=== PATIENT | female | born 1945 | race American Indian/Alaskan Native ===

== ENCOUNTER 2017-01-20 22:14 | Emergency (ER) | payer MEDICARE, OTHER ==
[2017-01-20 22:46] VITALS: BP 158/79
[2017-01-21] MEDS ORDERED: Levofloxacin 500 MG Tab PO ONE (00:54)
--- NOTE | 2017-01-21 01:01 | EDM.PDOC ---
ED HPI GENERAL MEDICAL PROBLEM - General Chief Complaint: ENT Problem Stated Complaint: BLOODY NOSE, WONT STOP Time Seen by Provider: 01/21/17 00:45 Source of Information: Reports: Patient History Limitations: Reports: No Limitations - History of Present Illness INITIAL COMMENTS - FREE TEXT/NARRATIVE: This 71 yo female patient reports to the ED due to a bloody nose. The patient reports her nose started bleeding this evening, but has not quit. The patient reports she has been having a cough and runny nose for the past week. The patient finished Augmentin on Thursday for bronchitis, but continues to have symptoms. Onset: Today Duration: Constant Location: Reports: Face, Chest Quality: Reports: Ache, Dull Severity: Moderate Improves with: Reports: None Worsens with: Reports: None Associated Symptoms: Reports: No Other Symptoms - Related Data Allergies Allergy/AdvReac Type Severity Reaction Status Date / Time milk Allergy Diarrhea Verified 01/20/17 22:46 morphine Allergy Stomach Verified 01/20/17 22:46 Upset aspirin AdvReac Stomach Verified 01/20/17 22:46 Upset codeine AdvReac Stomach Verified 01/20/17 22:46 Upset Home Meds: Home Meds Gabapentin [Neurontin] 100 mg PO BID 02/21/14 [History] Simvastatin [Zocor] 20 mg PO BEDTIME 02/21/14 [History] Albuterol [Proventil HFA] 6.7 gm INH ASDIRECTED PRN 08/07/14 [History] Cetirizine HCl [All Day Allergy] 10 mg PO DAILY 08/07/14 [History] Famotidine 20 mg PO DAILY 08/07/14 [History] Ferrous Gluconate 325 mg PO BID 08/07/14 [History] Levothyroxine [Synthroid] 50 mcg PO ACBREAKFAST 01/20/17 [History] Past Medical History - Past Health History Medical/Surgical History: Denies Medical/Surgical History HEENT History: Reports: Epistaxis Musculoskeletal History: Reports: Other (See Below) Other Musculoskeletal History: crushed vertebrae Oncologic (Cancer) History: Reports: Lung Other Oncologic History: Lung cancer in 2006 - Infectious Disease History Infectious Disease History: Reports: Chicken Pox, Measles Social & Family History - Tobacco Use Smoking Status *Q: Current Every Day Smoker Years of Tobacco use: 55 Packs/Tins Daily: 10 Used Tobacco, but Quit: No Second Hand Smoke Exposure: Yes - Caffeine Use Caffeine Use: Reports: Coffee, Tea - Alcohol Use Days Per Week of Alcohol Use: 0 - Recreational Drug Use Recreational Drug Use: No Drug Use in Last 12 Months: No - Living Situation & Occupation Living situation: Reports: Occupation: Retired ED ROS ENT - Review of Systems Review Of Systems: ROS reveals no pertinent complaints other than HPI. ED EXAM, ENT - Physical Exam Exam: See Below Exam Limited By: No Limitations General Appearance: Alert, WD/WN, Moderate Distress Eye Exam: Bilateral Eye: EOMI, Normal Inspection, PERRL Ears: Normal External Exam, Normal Canal, Hearing Grossly Normal, Normal TMs Nose: Normal Inspection, Normal Mucousa, Dried Blood (right nare) Mouth/Throat: Normal Inspection, Normal Gums, Normal Lips, Normal Oropharynx, Normal Teeth Head: Atraumatic, Normocephalic Neck: Normal Inspection, Supple, Non-Tender, Full Range of Motion Respiratory/Chest: No Respiratory Distress, No Accessory Muscle Use, Chest Non- Tender, Rhonchi (left lower lobe) Cardiovascular: Normal Peripheral Pulses, Regular Rate, Rhythm, No Edema, No Gallop, No JVD, No Murmur, No Rub GI/Abdominal: Normal Bowel Sounds, Soft, Non-Tender, No Organomegaly, No Distention, No Abnormal Bruit, No Mass (Female) Exam: Deferred Rectal (Female) Exam: Deferred Back: Normal Inspection, Full Range of Motion Extremities: Normal Inspection, Normal Range of Motion, Non-Tender, No Pedal Edema, Normal Capillary Refill Neurological: Alert, Oriented, CN II-XII Intact, Normal Cognition, Normal Gait, Normal Reflexes, No Motor/Sensory Deficits Psychiatric: Normal Affect, Normal Mood Skin: Warm, Dry, Intact, Normal Color, No Rash Lymphatic: No Adenopathy Course - Vital Signs Last Recorded V/S: Last Vital Signs Temp 36.7 C 01/20/17 22:32 Pulse 100 01/20/17 22:32 Resp 18 01/20/17 22:32 BP 158/79 H 01/20/17 22:32 Pulse Ox 100 01/20/17 22:32 - Orders/Labs/Meds Meds: Medications Discontinued Medications Generic Name Dose Route Start Last Admin Trade Name Freq PRN Reason Stop Dose Admin Levofloxacin 500 mg 01/21/17 00:54 01/21/17 01:01 Levaquin PO 01/21/17 00:55 500 mg ONETIME ONE Administration Departure - Departure Time of Disposition: 01:00 Disposition: Home, Self-Care 01 Condition: Fair Clinical Impression: Bronchitis, Nosebleed - Discharge Information Instructions: Acute Bronchitis, [id number], Nosebleed, [id number] Forms: ED Department Discharge Care Plan Goals: The patient was advised of the examination results during the visit. The patient was given an oral dose of Levaquin (500 mg) while in the emergency department. The patient was discharged with a script for Levaquin (500 mg) #5 to take 1 by mouth daily for the next 5 days. The patient was encouraged to place a small amount of triple antibiotic or Aquaphor on a cotton swab and apply to her nostril before bed and in the morning to keep the moisture in her nares. If the patient has any additional symptoms or concerns, the patient should follow-up with her primary care facility or return to the emergency department.
== END 2017-01-21 01:06 | disposition home or self-care (01) ==
LOC: DL.ED 22:14
DX: J40 Bronchitis, not specified as acute or chronic (principal); R04.0 Epistaxis; F17.210 Nicotine dependence, cigarettes, uncomplicated; Z88.5 Allergy status to narcotic agent; Z91.011 Allergy to milk products; Z88.8 Allergy status to other drugs, medicaments and biological substances; Z79.899 Other long term (current) drug therapy; E78.00 Pure hypercholesterolemia, unspecified; E03.9 Hypothyroidism, unspecified; Z88.6 Allergy status to analgesic agent
CPT/HCPCS: 30901; 99283; 99284; A9270

== ENCOUNTER 2017-01-21 09:53 | Emergency (ER) | payer MEDICARE, OTHER ==
[2017-01-21 10:10] VITALS: BP 139/70
[2017-01-21] MEDS ORDERED: Silver Nitrate Applicator Each TOP ONE (10:32)
--- NOTE | 2017-01-21 11:00 | EDM.PDOC ---
ED HPI GENERAL MEDICAL PROBLEM - General Chief Complaint: ENT Problem Stated Complaint: BLOODY NOSE [phone] Time Seen by Provider: 01/21/17 10:15 Source of Information: Reports: Patient, RN, RN Notes Reviewed History Limitations: Reports: No Limitations - History of Present Illness INITIAL COMMENTS - FREE TEXT/NARRATIVE: Patient presents to the ER with c/o nose bleed. She states she was seen in the ER last evening. She states the nose began to bleed again this morning, but she was able to get it stopped at home. She states she has company coming and would like to have the nose bleed taken care of. Pt admits to allergies and recent sinus congestion. Denies fever or chills, sob, chest pain, nausea, vomiting, diarrhea. Onset: Today Onset Date: 01/20/17 - Related Data Allergies Allergy/AdvReac Type Severity Reaction Status Date / Time milk Allergy Diarrhea Verified 01/20/17 22:46 morphine Allergy Stomach Verified 01/20/17 22:46 Upset aspirin AdvReac Stomach Verified 01/20/17 22:46 Upset codeine AdvReac Stomach Verified 01/20/17 22:46 Upset Home Meds: Home Meds Gabapentin [Neurontin] 100 mg PO BID 02/21/14 [History] Simvastatin [Zocor] 20 mg PO BEDTIME 02/21/14 [History] Albuterol [Proventil HFA] 6.7 gm INH ASDIRECTED PRN 08/07/14 [History] Cetirizine HCl [All Day Allergy] 10 mg PO DAILY 08/07/14 [History] Famotidine 20 mg PO DAILY 08/07/14 [History] Ferrous Gluconate 325 mg PO BID 08/07/14 [History] Levothyroxine [Synthroid] 50 mcg PO ACBREAKFAST 01/20/17 [History] Past Medical History - Past Health History Medical/Surgical History: Denies Medical/Surgical History HEENT History: Reports: Epistaxis Cardiovascular History: Reports: High Cholesterol Musculoskeletal History: Reports: Other (See Below) Other Musculoskeletal History: crushed vertebrae Endocrine/Metabolic History: Reports: Hypothyroidism Oncologic (Cancer) History: Reports: Lung Other Oncologic History: Lung cancer in 2006 - Infectious Disease History Infectious Disease History: Reports: Chicken Pox, Measles Social & Family History - Tobacco Use Smoking Status *Q: Current Every Day Smoker Years of Tobacco use: 55 Packs/Tins Daily: 10 Used Tobacco, but Quit: No Second Hand Smoke Exposure: Yes - Caffeine Use Caffeine Use: Reports: Coffee, Tea - Alcohol Use Days Per Week of Alcohol Use: 0 - Recreational Drug Use Recreational Drug Use: No Drug Use in Last 12 Months: No - Living Situation & Occupation Living situation: Reports: Occupation: Retired ED ROS ENT - Review of Systems Review Of Systems: ROS reveals no pertinent complaints other than HPI. ED EXAM, ENT - Physical Exam Exam: See Below Exam Limited By: No Limitations General Appearance: Alert, WD/WN, No Apparent Distress Eye Exam: Bilateral Eye: Normal Inspection, PERRL Ears: Normal External Exam, Normal Canal, Hearing Grossly Normal, TM Fluid ( bilat) Nose: Normal Inspection, Injected Turbinates (bilat) Mouth/Throat: Normal Inspection, Normal Gums, Normal Lips, Normal Oropharynx Head: Atraumatic, Normocephalic Neck: Normal Inspection, Supple, Non-Tender, Full Range of Motion Respiratory/Chest: No Respiratory Distress, Lungs Clear, Normal Breath Sounds, No Accessory Muscle Use, Chest Non-Tender Cardiovascular: Normal Peripheral Pulses, Regular Rate, Rhythm, No Edema, No Gallop, No JVD, No Murmur, No Rub GI/Abdominal: Normal Bowel Sounds, Soft, Non-Tender (Female) Exam: Deferred Rectal (Female) Exam: Deferred Back: Normal Inspection, Full Range of Motion Extremities: Normal Inspection, Normal Range of Motion, Non-Tender, No Pedal Edema, Normal Capillary Refill Neurological: Alert, Oriented, Normal Cognition, Normal Gait, No Motor/Sensory Deficits Psychiatric: Normal Affect, Normal Mood Skin: Warm, Dry, Intact, Normal Color, No Rash Lymphatic: No Adenopathy ED ENT PROCEDURES - Epistaxis Procedure Indication: Epistaxis, Controlled Recent anticoagulants/antiplatlets: No Uncontrolled HTN: No Recent septal/nasal surgery: No Site of bleeding: Right Nare Ice pack to area: No Chemical cautery: Silver Nitrate Topical Complications: No Course - Vital Signs Last Recorded V/S: Last Vital Signs Temp 98 F 01/21/17 09:56 Pulse 100 01/21/17 09:56 Resp 18 01/21/17 09:56 BP 139/70 01/21/17 09:56 Pulse Ox 97 01/21/17 09:56 - Orders/Labs/Meds Meds: Medications Discontinued Medications Generic Name Dose Route Start Last Admin Trade Name Tiffanie PRN Reason Stop Dose Admin Silver Nitrate 1 each 01/21/17 10:32 01/21/17 10:39 Silver Nitrate TOP 01/21/17 10:33 1 each ONETIME ONE Administration Departure - Departure Time of Disposition: 10:56 Disposition: Home, Self-Care 01 Condition: Good Clinical Impression: Epistaxis not due to trauma - Discharge Information Instructions: Nosebleed, [id number] Referrals: Palma Pandya NP [Primary Care Provider] - Forms: ED Department Discharge Additional Instructions: IF NOSEBLEED RECURS: Afrin 2-3 sprays to the affected nostril and pinch/firm pressure to the nose for 15-20 minutes. Follow up with your primary care facility as needed. Use over the counter bacitracin/zinc ointment. Apply to the nostril with a qtip 3 times daily to keep mucosa moist. Use humidifier at home.
== END 2017-01-21 11:19 | disposition home or self-care (01) ==
LOC: DL.ED 09:53
DX: R04.0 Epistaxis (principal); E78.00 Pure hypercholesterolemia, unspecified; E03.9 Hypothyroidism, unspecified; Z88.5 Allergy status to narcotic agent; Z91.011 Allergy to milk products; Z88.6 Allergy status to analgesic agent; Z79.899 Other long term (current) drug therapy
CPT/HCPCS: 30901; 99283

== ENCOUNTER 2018-09-27 12:59 | Emergency (ER) | payer MEDICARE, OTHER ==
--- NOTE | 2018-09-27 15:08 | EDM.PDOC ---
ED HPI GENERAL MEDICAL PROBLEM - General Chief Complaint: General Stated Complaint: FACIAL SWELING FROM SURGERY Time Seen by Provider: 09/27/18 14:45 Source of Information: Reports: Patient History Limitations: Reports: No Limitations - History of Present Illness INITIAL COMMENTS - FREE TEXT/NARRATIVE: This 72 yo female patient reports to the ED with left sided facial swelling post aneurism clamping (Done by Dr. Salcedo with [facility] in [place] on August 31, 2018) . The patient and her report increased swelling in the left side of her face over the past 3 days. The patient reports she has had numbness in the left side of her face and scalp since the surgery. The patient reports she has not had any other problems or noticed drainage. The patient reports she has not noticed any fevers or redness throughout the area. The patient reports the swelling seems to be increased in the morning and the area seems to be more firm than later in the day. Duration: Day(s):, Constant, Getting Worse Location: Reports: Head Quality: Reports: Dull Severity: Moderate Improves with: Reports: None Worsens with: Reports: None Context: Reports: Other Associated Symptoms: Reports: No Other Symptoms - Related Data Allergies Allergy/AdvReac Type Severity Reaction Status Date / Time milk Allergy Diarrhea Verified 09/27/18 13:53 morphine Allergy Stomach Verified 09/27/18 13:53 Upset aspirin AdvReac Stomach Verified 09/27/18 13:53 Upset codeine AdvReac Stomach Verified 09/27/18 13:53 Upset Home Meds: Home Meds Gabapentin [Neurontin] 100 mg PO BID 02/21/14 [History] Simvastatin [Zocor] 20 mg PO BEDTIME 02/21/14 [History] Albuterol [Proventil HFA] 6.7 gm INH ASDIRECTED PRN 08/07/14 [History] Cetirizine HCl [All Day Allergy] 10 mg PO DAILY 08/07/14 [History] Famotidine 20 mg PO DAILY 08/07/14 [History] Ferrous Gluconate 325 mg PO BID 08/07/14 [History] Levothyroxine [Synthroid] 50 mcg PO ACBREAKFAST 01/20/17 [History] Past Medical History - Past Health History Medical/Surgical History: Denies Medical/Surgical History HEENT History: Reports: Epistaxis Cardiovascular History: Reports: High Cholesterol Gastrointestinal History: Reports: GERD Musculoskeletal History: Reports: Other (See Below) Other Musculoskeletal History: crushed vertebrae Neurological History: Reports: Seizure Endocrine/Metabolic History: Reports: Hypothyroidism Oncologic (Cancer) History: Reports: Lung Other Oncologic History: Lung cancer in 2006 - Infectious Disease History Infectious Disease History: Reports: Chicken Pox, Measles - Past Surgical History HEENT Surgical History: Reports: Cataract Surgery Respiratory Surgical History: Reports: Lung Resection Female Surgical History: Reports: Hysterectomy Social & Family History - Family History Family Medical History: Noncontributory - Caffeine Use Caffeine Use: Reports: Coffee, Tea - Living Situation & Occupation Living situation: Reports: Occupation: Retired ED ROS GENERAL - Review of Systems Review Of Systems: ROS reveals no pertinent complaints other than HPI. ED EXAM, GENERAL - Physical Exam Exam: See Below Exam Limited By: No Limitations General Appearance: Alert, WD/WN, Mild Distress Eye Exam: Bilateral Eye: EOMI, Normal Inspection, PERRL Ears: Normal External Exam, Normal Canal, Hearing Grossly Normal, Normal TMs Nose: Normal Inspection, Normal Mucosa, No Blood Throat/Mouth: Normal Inspection, Normal Lips, Normal Teeth, Normal Gums, Normal Oropharynx, Normal Voice, No Airway Compromise Head: Atraumatic, Facial Swelling (left sided facial swelling) Neck: Normal Inspection, Supple, Non-Tender, Full Range of Motion Respiratory/Chest: No Respiratory Distress, Lungs Clear, Normal Breath Sounds, No Accessory Muscle Use, Chest Non-Tender Cardiovascular: Normal Peripheral Pulses, Regular Rate, Rhythm, No Edema, No Gallop, No JVD, No Murmur, No Rub GI/Abdominal: Normal Bowel Sounds, Soft, Non-Tender, No Organomegaly, No Distention, No Abnormal Bruit, No Mass (Female) Exam: Deferred Rectal (Female) Exam: Deferred Back Exam: Normal Inspection, Full Range of Motion, NT Extremities: Normal Inspection, Normal Range of Motion, Non-Tender, Normal Capillary Refill, No Pedal Edema Neurological: Alert, Oriented, CN II-XII Intact, Normal Cognition, Normal Gait, Normal Reflexes, No Motor/Sensory Deficits Psychiatric: Normal Affect, Normal Mood Skin Exam: Warm, Dry, Intact, Normal Color, No Rash Lymphatic: No Adenopathy Course - Vital Signs Last Recorded V/S: Last Vital Signs Temp 36.9 C 09/27/18 15:02 Pulse Resp BP Pulse Ox - Orders/Labs/Meds Orders: Active Orders 24 hr Category Date Time Status Brain w wo Cont [MR] Urgent Exams 09/27/18 15:27 Ordered Labs: Laboratory Tests 09/27/18 09/27/18 09/27/18 Range/Units 14:56 14:56 14:56 WBC 4.9 L (5.0-10.0) 10^3/uL RBC 4.14 L (4.2-5.4) 10^6/uL Hgb 10.1 L (12.0-16.0) g/dL Hct 33.3 L (37.0-47.0) % MCV 80.4 D (80-100) fL MCH 24.4 L (27.0-34.0) pg MCHC 30.3 L (33.0-35.0) g/dL Plt Count 330 D (150-450) 10^3/uL Neut % (Auto) 53.4 (42.2-75.2) % Lymph % (Auto) 34.9 (20.5-50.1) % Foard % (Auto) 8.0 (2-8) % Eos % (Auto) 3.3 H (1.0-3.0) % Baso % (Auto) 0.4 (0.0-1.0) % Sodium 141 (135-145) mmol/L Potassium 3.6 (3.6-5.0) mmol/L Chloride 108 (101-111) mmol/L Carbon Dioxide 23.0 (21.0-31.0) mmol/L Anion Gap 13.6 BUN 13 (7-18) mg/dL Creatinine 0.6 (0.6-1.3) mg/dL Est Cr Clr Drug Dosing 59.09 mL/min Estimated GFR (MDRD) > 60 BUN/Creatinine Ratio 21.66 Glucose 86 (74-105) mg/dL Calcium 8.7 (8.4-10.2) mg/dl Total Bilirubin 0.4 (0.2-1.0) mg/dL AST 15 (10-42) IU/L ALT 9 L (10-60) IU/L Alkaline Phosphatase 94 (42-121) IU/L C-Reactive Protein < 0.5 (0.0-1.3) mg/dL Total Protein 7.4 (6.7-8.2) g/dl Albumin 3.9 (3.2-5.5) g/dl Globulin 3.5 Albumin/Globulin Ratio 1.11 Meds: Medications Discontinued Medications Generic Name Dose Route Start Last Admin Trade Name Tiffanie PRN Reason Stop Dose Admin Gadobenate Dimeglumine 15 ml 09/27/18 15:27 09/27/18 15:45 Multihance IVPUSH 09/27/18 15:28 15 ml ONETIME ONE Administration - Re-Assessments/Exams Free Text/Narrative Re-Assessment/Exam: 09/27/18 15:12 A consult call was placed to Dr. Salcedo ([facility]). Dr. Salcedo would like labs ordered (CBC, CMP, CRP) and possible imaging (MRI with and without contrast if possible or CT with and without contrast if no MR). Dr. Salcedo would like to see the patient tomorrow for a clinic visit which will be coordinated through his nursing staff. Dr. Salcedo would like a call if we find anything abnormal or concerning on lab or imaging). 09/27/18 17:41 Received a return call from Dr. Wright (Nerurology). Dr. Wright agreed that the patient should be seen, but does not need to come to [facility]. The patient should follow-up with Dr. Salcedo's office tomorrow for continued evaluation and management. Departure - Departure Time of Disposition: 17:44 Disposition: Home, Self-Care 01 Condition: Fair Clinical Impression: Swelling of left side of face - Discharge Information *PRESCRIPTION DRUG MONITORING PROGRAM REVIEWED*: Not Applicable *COPY OF PRESCRIPTION DRUG MONITORING REPORT IN PATIENT YEN: Not Applicable Forms: ED Department Discharge Care Plan Goals: The patient was advised of the examination, lab and MRI results during the visit. Consult calls were made to Dr. Salcedo and Dr. Wright. The patient should call Dr. Salcedo's office in the morning to be seen in the clinic tomorrow. The patient was encouraged to avoid eating after midnight tonight. If the patient has any additional symptoms or concerns, the patient should either return to the emergency department or visit her primary care facility. - My Orders Last 24 Hours: My Active Orders 09/27/18 15:27 Brain w wo Cont [MR] Urgent - Assessment/Plan Last 24 Hours: My Active Orders 09/27/18 15:27 Brain w wo Cont [MR] Urgent
[2018-09-27 15:21] LABS: ANION GAP 13.6; CHLORIDE,CL 108 mmol/L (101-111); SODIUM,NA 141 mmol/L (135-145)
[2018-09-27] MEDS ORDERED: Gadobenate Dimeglumine 529 MG/ML 15 ML SDV IVPUSH ONE (15:27)
== END 2018-09-27 17:52 | disposition home or self-care (01) ==
LOC: DL.ED 12:59
DX: T81.89XA Other complications of procedures, not elsewhere classified, initial encounter (principal); R22.0 Localized swelling, mass and lump, head; E03.9 Hypothyroidism, unspecified; Z88.6 Allergy status to analgesic agent; Z88.5 Allergy status to narcotic agent; Z79.899 Other long term (current) drug therapy; Z98.49 Cataract extraction status, unspecified eye; Z90.710 Acquired absence of both cervix and uterus; Z91.011 Allergy to milk products
CPT/HCPCS: 36415; 70553; 80053; 85025; 86140; 99284; A9577; 99283

== ENCOUNTER 2019-03-07 11:01 | Inpatient (IN) | payer MEDICARE, OTHER ==
[2019-03-07] MEDS ORDERED: Ondansetron 4 MG Tab.DIS PO PRN (11:10)
[2019-03-07] MEDS ORDERED: Carboxymethylcellulose Sodium 1% Ophth Gel 0.4 ML UD EYEBOTH PRN (11:10)
[2019-03-07] MEDS ORDERED: Albuterol 6.7 GM Inhaler INH PRN (11:10)
--- NOTE | 2019-03-07 11:23 | PCM.HP ---
H&P History of Present Illness - General Date of Service: 03/07/19 Admit Problem/Dx: Admission Diagnosis/Problem Admission Diagnosis/Problem Confusion Source of Information: Patient - History of Present Illness Initial Comments - Free Text/Narative: Patient was admitted with acute cerebrovascular accident. Continues to require physical and occupational therapy. She is being admitted to swing bed for continuation of physical and occupational therapy Details below - Related Data Allergies/Adverse Reactions: Allergies Allergy/AdvReac Type Severity Reaction Status Date / Time aspirin AdvReac Stomach Verified 03/03/19 14:18 Upset codeine AdvReac Stomach Verified 03/03/19 14:18 Upset milk AdvReac Diarrhea Verified 03/03/19 14:45 morphine AdvReac Stomach Verified 03/03/19 14:45 Upset Home Medications: Home Meds Simvastatin [Zocor] 20 mg PO BEDTIME 02/21/14 [History] Albuterol [Proventil HFA] 2 puff INH Q4HR PRN 08/07/14 [History] Levothyroxine [Synthroid] 25 mcg PO ACBREAKFAST 01/20/17 [History] Calcium Citrate/Vitamin D3 [Calcium Citrate - Vit D Caplet] 2 tab PO DAILY 03/03 [History] Carboxymethylcellulose Sodium [Refresh Tears 0.5%] 1 - 2 drop EYEBOTH QID [History] Carvedilol [Coreg] 25 mg PO BID 03/03/19 [History] Cetirizine [ZyrTEC] 10 mg PO DAILY 03/03/19 [History] Cholecalciferol (Vitamin D3) [Vitamin D3] 1,000 unit PO DAILY 03/03/19 [History] Lisinopril 2.5 mg PO DAILY 03/03/19 [History] Magnesium Oxide 400 mg PO BID 03/03/19 [History] Omeprazole 20 mg PO DAILY 03/03/19 [History] dexAMETHasone [Dexamethasone] 8 mg PO DAILY 03/03/19 [History] Loratadine/Pseudoephedrine [Allergy Relief D 12-Hour Tab] 1 tab PO Q12HR PRN [History] Fluticasone Propionate [Flonase] [address] DAILY 03/07/19 [History] Past Medical History - Past Health History Medical/Surgical History: Denies Medical/Surgical History HEENT History: Reports: Epistaxis Cardiovascular History: Reports: High Cholesterol Respiratory History: Reports: SOB Gastrointestinal History: Reports: GERD Other Gastrointestinal History: lactose intolerance Genitourinary History: Reports: None IT [employer]CH[employer] History: Reports: None Musculoskeletal History: Reports: Other (See Below) Other Musculoskeletal History: crushed vertebrae Neurological History: Reports: Seizure Other Neuro History: Denies seizure 03/03/2019 Psychiatric History: Reports: None Endocrine/Metabolic History: Reports: Hypothyroidism Hematologic History: Reports: None Immunologic History: Reports: None Oncologic (Cancer) History: Reports: Lung Other Oncologic History: Lung cancer in 2006 Dermatologic History: Reports: None - Infectious Disease History Infectious Disease History: Reports: Chicken Pox, Measles - Past Surgical History HEENT Surgical History: Reports: Cataract Surgery Respiratory Surgical History: Reports: Lung Resection Female Surgical History: Reports: Hysterectomy Social & Family History - Family History Family Medical History: Noncontributory - Caffeine Use Caffeine Use: Reports: Coffee - Living Situation & Occupation Living situation: Reports: Occupation: Retired H&P Review of Systems - Review of Systems: Review Of Systems: See Below Pulmonary: Reports: No Symptoms Cardiovascular: Reports: No Symptoms Gastrointestinal: Reports: No Symptoms Musculoskeletal: Reports: No Symptoms Neurological: Reports: Weakness Exam - Exam Exam: See Below - Exam General: Alert, Oriented, Cooperative Neck: Supple, Trachea Midline, 2 Lungs: Clear to Auscultation, Normal Respiratory Effort Cardiovascular: Regular Rate, Regular Rhythm Extremities: Normal Inspection, Normal Range of Motion, Non-Tender, No Pedal Edema, Normal Capillary Refill Neuro Extensive - Motor, Sensory, Reflexes: Other (Mild weakness of the right extremities.) Problem List Initiated/Reviewed/Updated: Yes Orders Last 24hrs: Active Orders 24 hr Category Date Time Status Patient Status [ADT] Routine ADT 03/07/19 11:12 Active Communication Order [RC] ROUTINE Care 03/07/19 11:10 Active Oxygen Therapy [RC] PRN Care 03/07/19 11:10 Active RT Post Treatment Assessment [RC] Click to Edit Care 03/07/19 11:10 Active RT Pre-Treatment Assessment [RC] Click to Edit Care 03/07/19 11:10 Active Up ad Paulette [RC] ASDIRECTED Care 03/07/19 11:10 Active OT Evaluation and Treatment [CONS] Routine Cons 03/07/19 11:10 Active PT Evaluation and Treatment [CONS] Routine Cons 03/07/19 11:10 Active Regular Diet [DIET] Diet 03/07/19 Lunch Active Albuterol [Proventil HFA] Med 03/07/19 11:10 Ordered 6.7 gm INH Q4HR PRN Aspirin Med 03/08/19 08:00 Ordered 325 mg PO WITHBREAKFAST Carboxymethylcellulose Sodium [Refresh Celluvisc] Med 03/07/19 11:10 Ordered 0 each EYEBOTH QID PRN Clopidogrel [Plavix] Med 03/08/19 09:00 Ordered 75 mg PO DAILY Enoxaparin [Lovenox] Med 03/08/19 09:00 Ordered 40 mg SUBCUT DAILY Levothyroxine Med 03/08/19 06:00 Ordered 25 mcg PO ACBREAKFAST Lisinopril [Prinivil] Med 03/08/19 09:00 Ordered 2.5 mg PO DAILY Magnesium Oxide Med 03/07/19 21:00 Ordered 500 mg PO BID Omeprazole Med 03/08/19 06:00 Ordered 20 mg PO ACBREAKFAST Ondansetron [Zofran ODT] Med 03/07/19 11:10 Ordered 4 mg PO Q6H PRN Patient's Own Medication [Ptom] Med 03/07/19 21:00 Ordered 0 each PO BEDTIME atorvaSTATin [Lipitor] Med 03/07/19 21:00 Ordered 80 mg PO BEDTIME carvediloL [Coreg] Med 03/07/19 21:00 Ordered 25 mg PO BID Resuscitation Status Routine Resus Stat 03/07/19 11:12 Ordered Medication Orders Albuterol (Proventil Hfa) 6.7 gm INH Q4HR PRN PRN Reason: Shortness of Breath Artificial Tears (Refresh Celluvisc) 0 each EYEBOTH QID PRN PRN Reason: Dry Eyes Aspirin (Aspirin) 325 mg PO WITHBREAKFAST TAISHA Atorvastatin Calcium (Lipitor) 80 mg PO BEDTIME TAISHA Carvedilol (Coreg) 25 mg PO BID TAISHA Clopidogrel Bisulfate (Plavix) 75 mg PO DAILY TAISHA Enoxaparin Sodium (Lovenox) 40 mg SUBCUT DAILY TAISHA Levothyroxine Sodium (Levothyroxine) 25 mcg PO ACBREAKFAST TAISHA Lisinopril (Prinivil) 2.5 mg PO DAILY TAISHA Magnesium Oxide (Magnesium Oxide) 500 mg PO BID TAISHA Omeprazole (Omeprazole) 20 mg PO ACBREAKFAST [facility] Ondansetron HCl (Zofran Odt) 4 mg PO Q6H PRN PRN Reason: nausea, able to take PO Patient Own Medication (Ptom) 0 each PO BEDTIME [facility] Assessment/Plan Comment:: The patient presented with complaint of expressive difficulty, slowness of response, and some weakness of the right extremity. She also was somewhat unsteady on her feet MRI of the brain was obtained and it showed acute stroke #. Acute cerebrovascular accident MRI of the brain showed small noncontagious cortical and deep white matter infarctions in the left cerebral hemisphere predominantly in the left MCA territory. Cannot rule out embolic stroke aspirin 325 mg daily I discussed with the neurologist at [place], Dr. Carlson patient started Plavix and Lipitor as recommended by neurologist Patient will need ziopatch post discharge will follow up with neurologist at [place]. Does not want to go to [place] #. Acute encephalopathy Secondary to acute stroke Improving #. Hypomagnesemia Resolved #. Cytopenia These are likely due to chemotherapy No indication for transfusion #. Small cell lung cancer Has been on chemotherapy last chemotherapy was one week prior to presentation #. Hypothyroidism On hormone replacement therapy #. History of brain aneurysm Patient recently had surgical clamps placed Patient to be transferred to swing bed for physical and occupational therapy
[2019-03-07] MEDS: Carvedilol 25 MG Tab PO SCH (17:42)
[2019-03-07] MEDS: atorvaSTATin 20 MG Tab PO SCH (20:14)
[2019-03-07] MEDS ORDERED: Patient's Own Medication 1 Each PO SCH (21:00)
[2019-03-07] MEDS: Sodium Chloride 0.9% 10 ML Syringe FLUSH PRN (22:59)
[2019-03-08] MEDS ORDERED: Pantoprazole 40 MG Tab.CR PO SCH (06:00)
[2019-03-08] MEDS: Levothyroxine 25 MCG Tab PO SCH (06:24)
[2019-03-08] MEDS: Pantoprazole 40 MG Tab.CR PO SCH (06:24)
[2019-03-08] MEDS: Clopidogrel 75 MG Tab PO SCH (09:10)
[2019-03-08] MEDS: Carvedilol 25 MG Tab PO SCH ×2 (09:10→18:18)
[2019-03-08] MEDS: Aspirin 325 MG Tab PO SCH (09:10)
[2019-03-08] MEDS: Enoxaparin 40 MG/0.4 ML Syringe SUBCUT SCH ×2 (09:11→09:13)
[2019-03-08] MEDS: Lisinopril 5 MG Tab PO SCH (09:11)
[2019-03-08] MEDS: atorvaSTATin 20 MG Tab PO SCH (20:35)
[2019-03-08] MEDS: Sodium Chloride 0.9% 10 ML Syringe FLUSH PRN (20:35)
[2019-03-09] MEDS: Pantoprazole 40 MG Tab.CR PO SCH (05:32)
[2019-03-09] MEDS: Levothyroxine 25 MCG Tab PO SCH (05:33)
[2019-03-09] MEDS: Carvedilol 25 MG Tab PO SCH ×2 (09:17→17:36)
[2019-03-09] MEDS: Clopidogrel 75 MG Tab PO SCH (09:18)
[2019-03-09] MEDS: Lisinopril 5 MG Tab PO SCH (09:18)
[2019-03-09] MEDS: Aspirin 325 MG Tab PO SCH (09:18)
[2019-03-09] MEDS: Enoxaparin 40 MG/0.4 ML Syringe SUBCUT SCH (09:22)
[2019-03-09] MEDS: atorvaSTATin 20 MG Tab PO SCH (20:40)
[2019-03-10] MEDS: Levothyroxine 25 MCG Tab PO SCH (05:54)
[2019-03-10] MEDS: Pantoprazole 40 MG Tab.CR PO SCH (05:54)
[2019-03-10] MEDS: Lisinopril 5 MG Tab PO SCH (08:48)
[2019-03-10] MEDS: Aspirin 325 MG Tab PO SCH (08:48)
[2019-03-10] MEDS: Clopidogrel 75 MG Tab PO SCH (08:48)
[2019-03-10] MEDS: Carvedilol 25 MG Tab PO SCH ×2 (08:48→17:55)
[2019-03-10] MEDS: Enoxaparin 40 MG/0.4 ML Syringe SUBCUT SCH (08:50)
[2019-03-10] MEDS: Sodium Chloride 0.9% 10 ML Syringe FLUSH PRN (11:29)
[2019-03-10 19:29] VITALS: PULSE 84
[2019-03-10] MEDS: atorvaSTATin 20 MG Tab PO SCH (20:41)
[2019-03-11] MEDS: Levothyroxine 25 MCG Tab PO SCH (05:57)
[2019-03-11] MEDS: Pantoprazole 40 MG Tab.CR PO SCH (05:57)
[2019-03-11 07:37] VITALS: BP 114/64
[2019-03-11] MEDS: Carvedilol 25 MG Tab PO SCH (08:58)
[2019-03-11] MEDS: Lisinopril 5 MG Tab PO SCH (08:59)
[2019-03-11] MEDS: Aspirin 325 MG Tab PO SCH (09:00)
[2019-03-11] MEDS: Clopidogrel 75 MG Tab PO SCH (09:00)
[2019-03-11] MEDS: Enoxaparin 40 MG/0.4 ML Syringe SUBCUT SCH (09:01)
--- NOTE | 2019-03-11 11:55 | PCM.DCSUM1 ---
Discharge Summary - Discharge Data Discharge Disposition: Home, Self-Care 01 Condition: Good - Referral to Home Health Primary Care Physician: Palma Pandya NP - Patient Summary/Data Consults: Consultations 03/07/19 11:10 OT Evaluation and Treatment [CONS] Routine PT Evaluation and Treatment [CONS] Routine - Discharge Plan *PRESCRIPTION DRUG MONITORING PROGRAM REVIEWED*: Not Applicable *COPY OF PRESCRIPTION DRUG MONITORING REPORT IN PATIENT YEN: Not Applicable Prescriptions/Med Rec: Aspirin 325 mg PO WITHBREAKFAST #90 tablet atorvaSTATin [Lipitor] 80 mg PO BEDTIME #30 tablet Clopidogrel [Plavix] 75 mg PO DAILY #90 tablet Home Medications: Home Meds Simvastatin [Zocor] 20 mg PO BEDTIME 02/21/14 [History] Albuterol [Proventil HFA] 2 puff INH Q4HR PRN 08/07/14 [History] Levothyroxine [Synthroid] 25 mcg PO ACBREAKFAST 01/20/17 [History] Calcium Citrate/Vitamin D3 [Calcium Citrate - Vit D Caplet] 2 tab PO DAILY 03/03 [History] Carboxymethylcellulose Sodium [Refresh Tears 0.5%] 1 - 2 drop EYEBOTH QID [History] Carvedilol [Coreg] 25 mg PO BID 03/03/19 [History] Cetirizine [ZyrTEC] 10 mg PO DAILY 03/03/19 [History] Cholecalciferol (Vitamin D3) [Vitamin D3] 1,000 unit PO DAILY 03/03/19 [History] Lisinopril 2.5 mg PO DAILY 03/03/19 [History] Magnesium Oxide 400 mg PO BID 03/03/19 [History] Omeprazole 20 mg PO DAILY 03/03/19 [History] dexAMETHasone [Dexamethasone] 8 mg PO DAILY 03/03/19 [History] Loratadine/Pseudoephedrine [Allergy Relief D 12-Hour Tab] 1 tab PO Q12HR PRN [History] Fluticasone Propionate [Flonase] [address] DAILY 03/07/19 [History] Aspirin 325 mg PO WITHBREAKFAST #90 tablet 03/11/19 [Rx] Clopidogrel [Plavix] 75 mg PO DAILY #90 tablet 03/11/19 [Rx] atorvaSTATin [Lipitor] 80 mg PO BEDTIME #30 tablet 03/11/19 [Rx] - Patient Data Vitals - Most Recent: Last Vital Signs Temp 36.6 C 03/11/19 07:37 Pulse 84 03/11/19 08:58 Resp 18 03/11/19 07:37 BP 114/64 03/11/19 08:59 Pulse Ox 100 03/11/19 11:00 Weight - Most Recent: 63.957 kg I&O - Last 24 hours: Intake & Output 03/10/19 03/11/19 03/11/19 22:59 06:59 14:59 Intake Total 1160 300 Balance 1160 300 Med Orders - Current: Current Medications Albuterol (Proventil Hfa) 0 gm INH Q4HR PRN PRN Reason: Shortness of Breath Artificial Tears (Refresh Celluvisc) 0 each EYEBOTH QID PRN PRN Reason: Dry Eyes Aspirin (Aspirin) 325 mg PO WITHBREAKFAST [facility] Last Admin: 03/11/19 09:00 Dose: 325 mg Atorvastatin Calcium (Lipitor) 80 mg PO BEDTIME [facility] Last Admin: 03/10/19 20:41 Dose: 80 mg Carvedilol (Coreg) 25 mg PO BIDMEALS [facility] Last Admin: 03/11/19 08:58 Dose: 25 mg Clopidogrel Bisulfate (Plavix) 75 mg PO DAILY [facility] Last Admin: 03/11/19 09:00 Dose: 75 mg Enoxaparin Sodium (Lovenox) 40 mg SUBCUT DAILY [facility] Last Admin: 03/11/19 09:01 Dose: Not Given Levothyroxine Sodium (Levothyroxine) 25 mcg PO ACBREAKFAST [facility] Last Admin: 03/11/19 05:57 Dose: 25 mcg Lisinopril (Prinivil) 2.5 mg PO DAILY [facility] Last Admin: 03/11/19 08:59 Dose: 2.5 mg Magnesium Oxide (Magnesium Oxide) 500 mg PO BID@1000,2100 [facility] Last Admin: 03/11/19 10:16 Dose: 500 mg Ondansetron HCl (Zofran Odt) 4 mg PO Q6H PRN PRN Reason: nausea, able to take PO Pantoprazole Sodium (Protonix) 40 mg PO ACBREAKFAST [facility] Last Admin: 03/11/19 05:57 Dose: 40 mg Sodium Chloride (Saline Flush) 10 ml FLUSH ASDIRECTED PRN PRN Reason: Keep Vein Open Last Admin: 03/10/19 11:29 Dose: 10 ml Discontinued Medications Heparin Sodium (Porcine) (Heparin Lock Flush 100 Units/Ml) 500 units FLUSH ASDIRECTED ONE Stop: 03/10/19 11:18 Last Admin: 03/10/19 11:28 Dose: 500 units Patient Own Medication (Ptom) 0 each PO BEDTIME TAISHA
--- NOTE | 2019-03-11 12:06 | PCM.DCSUM1 ---
Discharge Summary - Hospital Course Free Text/Narrative:: 73 year old female with medical history of hypothyroidism, gastric surgery reflux disease, history of brain aneurysm, questionable history of seizures, and recent diagnosis of small cell lung cancer. The patient underwent resection of cancer and has been on chemotherapy. She has received 3 cycles of chemotherapy the last of which was one week ago prior to her admission on 2018. Patient was unsteady on her feet, and had difficulty with comprehension. Patient was found to have left CVA in the MCA territory. Patient had right- sided weakness, and was later in swing bed. Patient improved significantly with physical therapy and was later discharged home. Of note, patient did not want to follow-up at all true in [place], and chose to go to [place] for her care. She will need ZIO Patch on discharge. She was discharged in stable condition. - Discharge Data Discharge Date: 03/11/19 Discharge Disposition: Home, Self-Care 01 Condition: Good - Referral to Home Health Primary Care Physician: Palma Pandya NP - Patient Summary/Data Consults: Consultations 03/07/19 11:10 OT Evaluation and Treatment [CONS] Routine PT Evaluation and Treatment [CONS] Routine - Discharge Plan *PRESCRIPTION DRUG MONITORING PROGRAM REVIEWED*: Not Applicable *COPY OF PRESCRIPTION DRUG MONITORING REPORT IN PATIENT YEN: Not Applicable Prescriptions/Med Rec: Aspirin 325 mg PO WITHBREAKFAST #90 tablet atorvaSTATin [Lipitor] 80 mg PO BEDTIME #30 tablet Clopidogrel [Plavix] 75 mg PO DAILY #90 tablet Home Medications: Home Meds Albuterol [Proventil HFA] 2 puff INH Q4HR PRN 08/07/14 [History] Levothyroxine [Synthroid] 25 mcg PO ACBREAKFAST 01/20/17 [History] Calcium Citrate/Vitamin D3 [Calcium Citrate - Vit D Caplet] 2 tab PO DAILY 03/03 [History] Carboxymethylcellulose Sodium [Refresh Tears 0.5%] 1 - 2 drop EYEBOTH QID [History] Carvedilol [Coreg] 25 mg PO BID 03/03/19 [History] Cetirizine [ZyrTEC] 10 mg PO DAILY 03/03/19 [History] Cholecalciferol (Vitamin D3) [Vitamin D3] 1,000 unit PO DAILY 03/03/19 [History] Lisinopril 2.5 mg PO DAILY 03/03/19 [History] Magnesium Oxide 400 mg PO BID 03/03/19 [History] Omeprazole 20 mg PO DAILY 03/03/19 [History] dexAMETHasone [Dexamethasone] 8 mg PO DAILY 03/03/19 [History] Loratadine/Pseudoephedrine [Allergy Relief D 12-Hour Tab] 1 tab PO Q12HR PRN [History] Fluticasone Propionate [Flonase] [address] DAILY 03/07/19 [History] Aspirin 325 mg PO WITHBREAKFAST #90 tablet 03/11/19 [Rx] Clopidogrel [Plavix] 75 mg PO DAILY #90 tablet 03/11/19 [Rx] atorvaSTATin [Lipitor] 80 mg PO BEDTIME #30 tablet 03/11/19 [Rx] Patient Handouts: Confusion - Discharge Summary/Plan Comment DC Time >30 min.: Yes - General Info Date of Service: 03/11/19 Subjective Update: No complaints. - Patient Data Vitals - Most Recent: Last Vital Signs Temp 36.6 C 03/11/19 07:37 Pulse 84 03/11/19 08:58 Resp 18 03/11/19 07:37 BP 114/64 03/11/19 08:59 Pulse Ox 100 03/11/19 11:00 Weight - Most Recent: 63.957 kg I&O - Last 24 hours: Intake & Output 03/10/19 03/11/19 03/11/19 22:59 06:59 14:59 Intake Total 1160 300 Balance 1160 300 Med Orders - Current: Current Medications Albuterol (Proventil Hfa) 0 gm INH Q4HR PRN PRN Reason: Shortness of Breath Artificial Tears (Refresh Celluvisc) 0 each EYEBOTH QID PRN PRN Reason: Dry Eyes Aspirin (Aspirin) 325 mg PO WITHBREAKFAST [facility] Last Admin: 03/11/19 09:00 Dose: 325 mg Atorvastatin Calcium (Lipitor) 80 mg PO BEDTIME [facility] Last Admin: 03/10/19 20:41 Dose: 80 mg Carvedilol (Coreg) 25 mg PO BIDMEALS [facility] Last Admin: 03/11/19 08:58 Dose: 25 mg Clopidogrel Bisulfate (Plavix) 75 mg PO DAILY [facility] Last Admin: 03/11/19 09:00 Dose: 75 mg Enoxaparin Sodium (Lovenox) 40 mg SUBCUT DAILY [facility] Last Admin: 03/11/19 09:01 Dose: Not Given Levothyroxine Sodium (Levothyroxine) 25 mcg PO ACBREAKFAST [facility] Last Admin: 03/11/19 05:57 Dose: 25 mcg Lisinopril (Prinivil) 2.5 mg PO DAILY [facility] Last Admin: 03/11/19 08:59 Dose: 2.5 mg Magnesium Oxide (Magnesium Oxide) 500 mg PO BID@1000,2100 [facility] Last Admin: 03/11/19 10:16 Dose: 500 mg Ondansetron HCl (Zofran Odt) 4 mg PO Q6H PRN PRN Reason: nausea, able to take PO Pantoprazole Sodium (Protonix) 40 mg PO ACBREAKFAST [facility] Last Admin: 03/11/19 05:57 Dose: 40 mg Sodium Chloride (Saline Flush) 10 ml FLUSH ASDIRECTED PRN PRN Reason: Keep Vein Open Last Admin: 03/10/19 11:29 Dose: 10 ml Discontinued Medications Heparin Sodium (Porcine) (Heparin Lock Flush 100 Units/Ml) 500 units FLUSH ASDIRECTED ONE Stop: 03/10/19 11:18 Last Admin: 03/10/19 11:28 Dose: 500 units Patient Own Medication (Ptom) 0 each PO BEDTIME TAISHA - Exam General: Reports: Alert, Oriented Lungs: Reports: Clear to Auscultation Cardiovascular: Reports: Regular Rate, Regular Rhythm GI/Abdominal Exam: Normal Bowel Sounds, Soft, Non-Tender Extremities: Normal Inspection, No Pedal Edema Skin: Reports: Warm, Dry, Intact Neurological: Reports: No New Focal Deficit Psy/Mental Status: Reports: Alert, Normal Affect, Normal Mood
== END 2019-03-11 14:05 | disposition home or self-care (01) | DRG 57 ==
LOC: DL.MS 11:12
PROVIDERS: ADMIT Hospitalist; ATTEND Internal Medicine
DX: I69.351 Hemiplegia and hemiparesis following cerebral infarction affecting right dominant side (principal); C34.90 Malignant neoplasm of unspecified part of unspecified bronchus or lung; G93.40 Encephalopathy, unspecified; E78.00 Pure hypercholesterolemia, unspecified; E83.42 Hypomagnesemia; K21.9 Gastro-esophageal reflux disease without esophagitis; E03.9 Hypothyroidism, unspecified; Z98.49 Cataract extraction status, unspecified eye; Z90.710 Acquired absence of both cervix and uterus; Z88.6 Allergy status to analgesic agent; Z88.5 Allergy status to narcotic agent; Z91.011 Allergy to milk products; Z79.899 Other long term (current) drug therapy; Z92.21 Personal history of antineoplastic chemotherapy
CPT/HCPCS: 94010; 97110-GP; 97112-GP; 97116-GP; 97162-GP; 97165-GO; 97530-GO; 97530-GP; A9270-GY; J1642; J1650

== ENCOUNTER 2019-05-18 20:17 | Emergency (ER) | payer MEDICARE, OTHER ==
[2019-05-18 20:26] VITALS: BP 151/59; PULSE 94
--- NOTE | 2019-05-18 20:33 | EDM.PDOC ---
ED HPI GENERAL MEDICAL PROBLEM - General Chief Complaint: Gastrointestinal Problem Stated Complaint: NEEDS A BLOOD TEST? Time Seen by Provider: 05/18/19 20:33 Source of Information: Reports: Patient, Family, RN, RN Notes Reviewed History Limitations: Reports: No Limitations - History of Present Illness INITIAL COMMENTS - FREE TEXT/NARRATIVE: patient to ER with complaint of black stools. Patient states she has history of GI bleed in the past, needing blood transfusions. Patient has history of COPD and lung cancer. Last chemotherapy was done today in [place]. Patient states she did not tell her nurses or doctors in [place] that she was having black stools. Patient's next chemotherapy is due in June. Patient states she has been on amoxicillin since last week for a sinus infection. Denies any anticoagulation therapy, or iron supplements. Patient states she has had some stomach pain over the past few days, intermittently. Patient complains of a cough recently, denies fever or chills. Onset: Gradual - Related Data Allergies Allergy/AdvReac Type Severity Reaction Status Date / Time aspirin AdvReac Stomach Verified 03/07/19 11:26 Upset codeine AdvReac Stomach Verified 03/07/19 11:26 Upset milk AdvReac Diarrhea Verified 03/07/19 11:26 morphine AdvReac Stomach Verified 03/07/19 11:26 Upset Home Meds: Home Meds Albuterol [Proventil HFA] 2 puff INH Q4HR PRN 08/07/14 [History] Levothyroxine [Synthroid] 25 mcg PO ACBREAKFAST 01/20/17 [History] Calcium Citrate/Vitamin D3 [Calcium Citrate - Vit D Caplet] 2 tab PO DAILY 03/03 [History] Carboxymethylcellulose Sodium [Refresh Tears 0.5%] 1 - 2 drop EYEBOTH QID [History] Carvedilol [Coreg] 25 mg PO BID 03/03/19 [History] Cetirizine [ZyrTEC] 10 mg PO DAILY 03/03/19 [History] Cholecalciferol (Vitamin D3) [Vitamin D3] 1,000 unit PO DAILY 03/03/19 [History] Omeprazole 20 mg PO DAILY 03/03/19 [History] dexAMETHasone [Dexamethasone] 8 mg PO DAILY 03/03/19 [History] lisinopriL [Lisinopril] 2.5 mg PO DAILY 03/03/19 [History] Loratadine/Pseudoephedrine [Allergy Relief D 12-Hour Tab] 1 tab PO Q12HR PRN [History] Fluticasone Propionate [Flonase] [address] DAILY 03/07/19 [History] Aspirin 325 mg PO WITHBREAKFAST #90 tablet 03/11/19 [Rx] Clopidogrel [Plavix] 75 mg PO DAILY #90 tablet 03/11/19 [Rx] atorvaSTATin [Lipitor] 80 mg PO BEDTIME #30 tablet 03/11/19 [Rx] Past Medical History - Past Health History Medical/Surgical History: Denies Medical/Surgical History HEENT History: Reports: Epistaxis, Impaired Vision Cardiovascular History: Reports: High Cholesterol Respiratory History: Reports: SOB Gastrointestinal History: Reports: GERD Other Gastrointestinal History: lactose intolerance Genitourinary History: Reports: None 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: Musculoskeletal History: Reports: Other (See Below) Other Musculoskeletal History: crushed vertebrae Neurological History: Reports: CVA, Seizure Other Neuro History: Denies seizure 03/03/2019 Psychiatric History: Reports: None Endocrine/Metabolic History: Reports: Hypothyroidism Hematologic History: Reports: None Immunologic History: Reports: None Oncologic (Cancer) History: Reports: Lung Other Oncologic History: Lung cancer in 2005, 2011, 2018 Dermatologic History: Reports: None - Infectious Disease History Infectious Disease History: Reports: Chicken Pox, Measles - Past Surgical History HEENT Surgical History: Reports: Cataract Surgery Respiratory Surgical History: Reports: Lung Resection Other Respiratory Surgeries/Procedures: currently on chemo GI Surgical History: Reports: Colonoscopy Female Surgical History: Reports: Hysterectomy Social & Family History - Family History Family Medical History: Noncontributory - Tobacco Use Smoking Status *Q: Current Some Day Smoker Years of Tobacco use: 60 Packs/Tins Daily: 0.2 Used Tobacco, but Quit: No Second Hand Smoke Exposure: Yes - Caffeine Use Caffeine Use: Reports: Coffee - Recreational Drug Use Recreational Drug Use: No - Living Situation & Occupation Living situation: Reports: Occupation: Retired ED ROS GENERAL - Review of Systems Review Of Systems: Comprehensive ROS is negative, except as noted in HPI. ED EXAM, GI/ABD - Physical Exam Exam: See Below Exam Limited By: No Limitations General Appearance: Alert, WD/WN, No Apparent Distress Eyes: Bilateral: Normal Appearance, EOMI Ears: Normal External Exam, Hearing Grossly Normal Nose: Normal Inspection Throat/Mouth: Normal Inspection, Normal Voice, No Airway Compromise Head: Atraumatic, Normocephalic Neck: Normal Inspection, Supple, Non-Tender, Full Range of Motion Respiratory/Chest: Decreased Breath Sounds, Crackles (throughout) Cardiovascular: Normal Peripheral Pulses, Regular Rate, Rhythm, No Edema, No Gallop, No JVD, No Murmur, No Rub GI/Abdominal Exam: Normal Bowel Sounds, Soft, Tender (Female) Exam: Deferred Rectal (Female) Exam: Black Stool, Heme + Stool Back Exam: Normal Inspection, Full Range of Motion, NT Extremities: Normal Inspection, Normal Range of Motion, Non-Tender, Normal Capillary Refill, No Pedal Edema Neurological: Alert, Oriented, CN II-XII Intact, Normal Cognition, Normal Gait, Normal Reflexes, No Motor/Sensory Deficits Psychiatric: Normal Affect, Normal Mood Skin Exam: Warm, Dry, Intact, Normal Color, No Rash Lymphatic: No Adenopathy Course - Vital Signs Last Recorded V/S: Last Vital Signs Temp 96.3 F 05/18/19 20:25 Pulse 94 05/18/19 20:25 Resp 21 H 05/18/19 20:25 BP 151/59 H 05/18/19 20:25 Pulse Ox 100 05/18/19 20:25 - Orders/Labs/Meds Orders: Active Orders 24 hr Category Date Time Status EKG Documentation Completion [RC] STAT Care 05/18/19 20:41 Active Peripheral IV Care [RC] . DIRECTED Care 05/18/19 20:41 Active Chest 1V Frontal [CR] Stat Exams 05/18/19 21:10 Taken CULTURE BLOOD [BC] Stat Lab 05/18/19 21:03 Ordered CULTURE BLOOD [BC] Stat Lab 05/18/19 21:14 Results RED BLOOD CELLS LP [BBK] Stat Lab 05/18/19 20:48 Results TYPE AND SCREEN [BBK] Stat Lab 05/18/19 20:48 Results Sodium Chloride 0.9% [Normal Saline] 1,000 ml Med 05/18/19 21:37 Active IV .BOLUS Sodium Chloride 0.9% [Saline Flush] Med 05/18/19 20:41 Active 10 ml FLUSH ASDIRECTED PRN cefTRIAXone [Rocephin] 1 gm Med 05/18/19 21:34 Active Sodium Chloride 0.9% [Normal Saline] 50 ml IV ONETIME Blood Culture x2 Reflex Set [OM.PC] Stat Oth 05/18/19 21:03 Ordered Peripheral IV Insertion Adult [OM.PC] Stat Oth 05/18/19 20:40 Ordered Medication Orders Ceftriaxone Sodium 1 gm/ (Sodium Chloride) 50 mls @ 50 mls/hr IV ONETIME ONE Stop: 05/18/19 22:33 Sodium Chloride (Normal Saline) 1,000 mls @ 125 mls/hr IV .BOLUS ONE Stop: 05/19/19 05:36 Last Admin: 05/18/19 21:48 Dose: 125 mls/hr Sodium Chloride (Saline Flush) 10 ml FLUSH ASDIRECTED PRN PRN Reason: Keep Vein Open Last Admin: 05/18/19 20:49 Dose: 10 ml Labs: Laboratory Tests 05/18/19 05/18/19 05/18/19 Range/Units 20:48 20:48 20:48 WBC 28.6 H* (5.0-10.0) 10^3/uL RBC 3.39 L (4.2-5.4) 10^6/uL Hgb 8.5 L (12.0-16.0) g/dL Hct 27.5 L (37.0-47.0) % MCV 81.1 D (80-100) fL MCH 25.1 L (27.0-34.0) pg MCHC 30.9 L (33.0-35.0) g/dL Plt Count 396 D (150-450) 10^3/uL Neut % (Auto) 91.8 H (42.2-75.2) % Lymph % (Auto) 6.2 L (20.5-50.1) % [place] % (Auto) 1.9 L (2-8) % Eos % (Auto) 0.0 L (1.0-3.0) % Baso % (Auto) 0.1 (0.0-1.0) % Add Manual Diff Yes Neutrophils % (Manual) 89 H (42-75) % Band Neutrophils % 5 % Lymphocytes % (Manual) 5 L (20-50) % Monocytes % (Manual) 1 L (2-8) % PT 10.5 (9.0-12.0) SEC INR 1.0 (0.9-1.2) Sodium 138 (135-145) mmol/L Potassium 3.7 (3.6-5.0) mmol/L Chloride 109 (101-111) mmol/L Carbon Dioxide 22.0 (21.0-31.0) mmol/L Anion Gap 10.7 BUN 15 (7-18) mg/dL Creatinine 0.6 (0.6-1.3) mg/dL Est Cr Clr Drug Dosing 58.19 mL/min Estimated GFR (MDRD) > 60 BUN/Creatinine Ratio 25.00 Glucose 122 H (74-105) mg/dL Lactic Acid (0.5-2.0) mmol/L Calcium 8.1 L (8.4-10.2) mg/dl Total Bilirubin 0.2 (0.2-1.0) mg/dL AST 14 (10-42) IU/L ALT 10 (10-60) IU/L Alkaline Phosphatase 76 (42-121) IU/L Total Protein 6.0 L (6.7-8.2) g/dl Albumin 3.2 (3.2-5.5) g/dl Globulin 2.8 Albumin/Globulin Ratio 1.14 Blood Type Gel Antibody Screen Crossmatch 05/18/19 05/18/19 Range/Units 20:48 21:14 WBC (5.0-10.0) 10^3/uL RBC (4.2-5.4) 10^6/uL Hgb (12.0-16.0) g/dL Hct (37.0-47.0) % MCV (80-100) fL MCH (27.0-34.0) pg MCHC (33.0-35.0) g/dL Plt Count (150-450) 10^3/uL Neut % (Auto) (42.2-75.2) % Lymph % (Auto) (20.5-50.1) % [place] % (Auto) (2-8) % Eos % (Auto) (1.0-3.0) % Baso % (Auto) (0.0-1.0) % Add Manual Diff Neutrophils % (Manual) (42-75) % Band Neutrophils % % Lymphocytes % (Manual) (20-50) % Monocytes % (Manual) (2-8) % PT (9.0-12.0) SEC INR (0.9-1.2) Sodium (135-145) mmol/L Potassium (3.6-5.0) mmol/L Chloride (101-111) mmol/L Carbon Dioxide (21.0-31.0) mmol/L Anion Gap BUN (7-18) mg/dL Creatinine (0.6-1.3) mg/dL Est Cr Clr Drug Dosing mL/min Estimated GFR (MDRD) BUN/Creatinine Ratio Glucose (74-105) mg/dL Lactic Acid 1.0 (0.5-2.0) mmol/L Calcium (8.4-10.2) mg/dl Total Bilirubin (0.2-1.0) mg/dL AST (10-42) IU/L ALT (10-60) IU/L Alkaline Phosphatase (42-121) IU/L Total Protein (6.7-8.2) g/dl Albumin (3.2-5.5) g/dl Globulin Albumin/Globulin Ratio Blood Type O POSITIVE Gel Antibody Screen Negative Crossmatch See Detail Meds: Medications Generic Name Dose Route Start Last Admin Trade Name Freq PRN Reason Stop Dose Admin Ceftriaxone Sodium 1 gm/ 50 mls @ 50 mls/hr 05/18/19 21:34 Sodium Chloride IV 05/18/19 22:33 ONETIME ONE Sodium Chloride 1,000 mls @ 125 mls/hr 05/18/19 21:37 05/18/19 21:48 Normal Saline IV 05/19/19 05:36 125 mls/hr .BOLUS ONE Administration Sodium Chloride 10 ml 05/18/19 20:41 05/18/19 20:49 Saline Flush FLUSH 10 ml ASDIRECTED PRN Administration Keep Vein Open Discontinued Medications Generic Name Dose Route Start Last Admin Trade Name Freq PRN Reason Stop Dose Admin Piperacillin Sod/Tazobactam 100 mls @ 200 mls/hr 05/18/19 21:35 05/18/19 21: 51 Sod 3.375 gm/ Sodium Chloride IV 05/18/19 22:04 200 mls/hr ONETIME ONE Administration Pantoprazole Sodium 80 mg 05/18/19 21:35 05/18/19 21:48 Protonix Iv IVPUSH 05/18/19 21:36 80 mg .BOLUS ONE Administration - Radiology Interpretation Free Text/Narrative:: chest x-ray: FINDINGS: Tubes, catheters and devices: A left infusion port is present. Lungs: There is indistinct opacity obscuring a portion of the right hemidiaphragm in the right lung base. Pleural space: There are no pleural effusions present. Heart/Mediastinum: The heart is not enlarged. The pulmonary arteries are not enlarged. Bones/joints: Unremarkable IMPRESSION: Right basilar infiltrate obscuring the right heart border. This is new since the prior study. Thank you for allowing us to participate in the care of your patient. Dictated and Authenticated by: Chuy Esquivel MD 05/18/2019 9:35 PM Central Time ([place] & [place]) See radiologist's report - Re-Assessments/Exams Free Text/Narrative Re-Assessment/Exam: 05/18/19 22:16 Discussed patient case with Dr. Diaz who agreed to accept the patient for transfer to [facility] Departure - Departure Time of Disposition: 22:16 Disposition: DC/Tfer to Acute Hospital 02 Condition: Fair Clinical Impression: Gastrointestinal bleeding, lower Pneumonia Qualifiers: Pneumonia type: due to unspecified organism Laterality: right Lung location: lower lobe of lung Qualified Code(s): J18.9 - Pneumonia, unspecified organism Anemia Qualifiers: Anemia type: unspecified type Qualified Code(s): D64.9 - Anemia, unspecified - Discharge Information *PRESCRIPTION DRUG MONITORING PROGRAM REVIEWED*: No *COPY OF PRESCRIPTION DRUG MONITORING REPORT IN PATIENT YEN: No Referrals: PCP,Unobtain [Primary Care Provider] - Forms: ED Department Discharge, Interfacility Transfer [facility] Sepsis Event Note - Evaluation Sepsis Screening Result: No Definite Risk - Focused Exam Vital Signs: Vital Signs Temp Pulse Resp BP Pulse Ox 05/18/19 20:25 96.3 F 94 21 H 151/59 H 100 Date Exam was Performed: 05/18/19 Time Exam was Performed: 22:16 - My Orders Last 24 Hours: My Active Orders 05/18/19 20:40 Peripheral IV Insertion Adult [OM.PC] Stat 05/18/19 20:41 EKG Documentation Completion [RC] STAT Peripheral IV Care [RC] . DIRECTED Sodium Chloride 0.9% [Saline Flush] 10 ml FLUSH ASDIRECTED PRN 05/18/19 20:48 RED BLOOD CELLS LP [BBK] Stat TYPE AND SCREEN [BBK] Stat 05/18/19 21:03 CULTURE BLOOD [BC] Stat Blood Culture x2 Reflex Set [OM.PC] Stat 05/18/19 21:10 Chest 1V Frontal [CR] Stat 05/18/19 21:14 CULTURE BLOOD [BC] Stat 05/18/19 21:34 cefTRIAXone [Rocephin] 1 gm Sodium Chloride 0.9% [Normal Saline] 50 ml IV ONETIME 05/18/19 21:37 Sodium Chloride 0.9% [Normal Saline] 1,000 ml IV .BOLUS - Assessment/Plan Last 24 Hours: My Active Orders 05/18/19 20:40 Peripheral IV Insertion Adult [OM.PC] Stat 05/18/19 20:41 EKG Documentation Completion [RC] STAT Peripheral IV Care [RC] . DIRECTED Sodium Chloride 0.9% [Saline Flush] 10 ml FLUSH ASDIRECTED PRN 05/18/19 20:48 RED BLOOD CELLS LP [BBK] Stat TYPE AND SCREEN [BBK] Stat 05/18/19 21:03 CULTURE BLOOD [BC] Stat Blood Culture x2 Reflex Set [OM.PC] Stat 05/18/19 21:10 Chest 1V Frontal [CR] Stat 05/18/19 21:14 CULTURE BLOOD [BC] Stat 05/18/19 21:34 cefTRIAXone [Rocephin] 1 gm Sodium Chloride 0.9% [Normal Saline] 50 ml IV ONETIME 05/18/19 21:37 Sodium Chloride 0.9% [Normal Saline] 1,000 ml IV .BOLUS
[2019-05-18] MEDS ORDERED: Sodium Chloride 0.9% 10 ML Syringe FLUSH PRN (20:41)
[2019-05-18 21:16] LABS: ANION GAP 10.7; CHLORIDE,CL 109 mmol/L (101-111); SODIUM,NA 138 mmol/L (135-145)
[2019-05-18] MEDS ORDERED: cefTRIAXone 1 GM in Sodium Chloride 0.9% 50 ML IV ONE (21:34)
[2019-05-18] MEDS ORDERED: Piperacillin/Tazobactam 3.375 GM in Sodium Chloride 0.9% 100 ML IV ONE (21:35)
[2019-05-18] MEDS ORDERED: Pantoprazole 40 MG Vial IVPUSH ONE (21:35)
[2019-05-18] MEDS ORDERED: Sodium Chloride 0.9% 1,000 ML IV ONE (21:37)
== END 2019-05-18 22:58 ==
LOC: DL.ED 20:17
DX: J18.9 Pneumonia, unspecified organism (principal); K92.2 Gastrointestinal hemorrhage, unspecified; D64.9 Anemia, unspecified; Z79.890 Hormone replacement therapy; K21.9 Gastro-esophageal reflux disease without esophagitis; E78.00 Pure hypercholesterolemia, unspecified; F17.210 Nicotine dependence, cigarettes, uncomplicated; E03.9 Hypothyroidism, unspecified; Z88.6 Allergy status to analgesic agent; Z88.5 Allergy status to narcotic agent; Z91.011 Allergy to milk products; Z79.82 Long term (current) use of aspirin; Z79.899 Other long term (current) drug therapy; Z86.73 Personal history of transient ischemic attack (TIA), and cerebral infarction without residual deficits
CPT/HCPCS: 36415; 71045; 80053; 81003; 82272; 83605; 85025; 85610; 86850; 86900; 86901; 86920; 86922; 87040; 93005; 96365; 96368; 96375; 99285; C9113; J0696; J2543; J7030; J7050

== ENCOUNTER 2019-07-05 10:01 | Emergency (ER) | payer MEDICARE, OTHER ==
[2019-07-05 11:12] LABS: CHLORIDE,CL 106 mmol/L (98-107); SODIUM,NA 140 mmol/L (136-145)
[2019-07-05] MEDS ORDERED: Pantoprazole 40 MG Vial IVPUSH ONE (11:19)
--- NOTE | 2019-07-05 11:48 | EDM.PDOC ---
ED HPI GENERAL MEDICAL PROBLEM - General Chief Complaint: Gastrointestinal Problem Stated Complaint: BLOOD IN STOOL Time Seen by Provider: 07/05/19 10:10 Source of Information: Reports: Patient History Limitations: Reports: No Limitations - History of Present Illness INITIAL COMMENTS - FREE TEXT/NARRATIVE: This 73 yo female patient reports to the ED due to black stools yesterday and again today. The patient has a history of lung cancer and previous GI bleeds ( last was in May). The patient reports she is feeling weak and tired today. The patient's oncologist is from [place] and has a PET scan scheduled for mid July. Onset: Today Duration: Constant Location: Reports: Generalized Quality: Reports: Other Severity: Moderate Improves with: Reports: None Worsens with: Reports: None Context: Reports: Other Associated Symptoms: Reports: No Other Symptoms - Related Data Allergies Allergy/AdvReac Type Severity Reaction Status Date / Time aspirin AdvReac Stomach Verified 07/05/19 10:10 Upset codeine AdvReac Stomach Verified 07/05/19 10:10 Upset milk AdvReac Diarrhea Verified 07/05/19 10:10 morphine AdvReac Stomach Verified 07/05/19 10:10 Upset Home Meds: Home Meds Albuterol [Proventil HFA] 2 puff INH Q4HR PRN 08/07/14 [History] Levothyroxine [Synthroid] 25 mcg PO ACBREAKFAST 01/20/17 [History] Calcium Citrate/Vitamin D3 [Calcium Citrate - Vit D Caplet] 2 tab PO DAILY 03/03 [History] Carboxymethylcellulose Sodium [Refresh Tears 0.5%] 1 - 2 drop EYEBOTH QID [History] Carvedilol [Coreg] 25 mg PO BID 03/03/19 [History] Cetirizine [ZyrTEC] 10 mg PO DAILY 03/03/19 [History] Cholecalciferol (Vitamin D3) [Vitamin D3] 1,000 unit PO DAILY 03/03/19 [History] Omeprazole 20 mg PO DAILY 03/03/19 [History] dexAMETHasone [Dexamethasone] 8 mg PO DAILY 03/03/19 [History] lisinopriL [Lisinopril] 2.5 mg PO DAILY 03/03/19 [History] Loratadine/Pseudoephedrine [Allergy Relief D 12-Hour Tab] 1 tab PO Q12HR PRN [History] Fluticasone Propionate [Flonase] [address] DAILY 03/07/19 [History] Aspirin 325 mg PO WITHBREAKFAST #90 tablet 03/11/19 [Rx] Clopidogrel [Plavix] 75 mg PO DAILY #90 tablet 03/11/19 [Rx] atorvaSTATin [Lipitor] 80 mg PO BEDTIME #30 tablet 03/11/19 [Rx] Past Medical History - Past Health History Medical/Surgical History: Denies Medical/Surgical History HEENT History: Reports: Epistaxis, Impaired Vision Cardiovascular History: Reports: High Cholesterol Respiratory History: Reports: COPD, SOB Gastrointestinal History: Reports: GERD, GI Bleed Other Gastrointestinal History: lactose intolerance Genitourinary History: Reports: None 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: Musculoskeletal History: Reports: Other (See Below) Other Musculoskeletal History: crushed vertebrae Neurological History: Reports: CVA, Seizure Other Neuro History: Denies seizure 03/03/2019 Psychiatric History: Reports: None Endocrine/Metabolic History: Reports: Hypothyroidism Hematologic History: Reports: None Immunologic History: Reports: Immunosuppression, Other (See Below) Other Immunologic History: On Chemo Oncologic (Cancer) History: Reports: Lung Other Oncologic History: Lung cancer in 2005, 2011, 2018 Dermatologic History: Reports: None - Infectious Disease History Infectious Disease History: Reports: Chicken Pox, Measles - Past Surgical History HEENT Surgical History: Reports: Cataract Surgery Respiratory Surgical History: Reports: Lung Resection Other Respiratory Surgeries/Procedures: currently on chemo GI Surgical History: Reports: Colonoscopy Female Surgical History: Reports: Hysterectomy Social & Family History - Family History Family Medical History: Noncontributory - Tobacco Use Smoking Status *Q: Current Every Day Smoker Years of Tobacco use: 60 Packs/Tins Daily: 0.5 - Caffeine Use Caffeine Use: Reports: Coffee - Recreational Drug Use Recreational Drug Use: No - Living Situation & Occupation Living situation: Reports: Occupation: Retired ED ROS GENERAL - Review of Systems Review Of Systems: Comprehensive ROS is negative, except as noted in HPI. ED EXAM, GI/ABD - Physical Exam Exam: See Below Exam Limited By: No Limitations General Appearance: Alert, WD/WN, Moderate Distress Eyes: Bilateral: Normal Appearance, EOMI Ears: Normal External Exam, Normal Canal, Hearing Grossly Normal, Normal TMs Nose: Normal Inspection, Normal Mucosa, No Blood Throat/Mouth: Normal Inspection, Normal Lips, Normal Teeth, Normal Gums, Normal Oropharynx, Normal Voice, No Airway Compromise Head: Atraumatic, Normocephalic Neck: Normal Inspection, Supple, Non-Tender, Full Range of Motion Respiratory/Chest: No Respiratory Distress, Lungs Clear, Normal Breath Sounds, No Accessory Muscle Use, Chest Non-Tender Cardiovascular: Normal Peripheral Pulses, Regular Rate, Rhythm, No Edema, No Gallop, No JVD, No Murmur, No Rub GI/Abdominal Exam: Normal Bowel Sounds, Soft, Non-Tender, No Organomegaly, No Distention, No Abnormal Bruit, No Mass, Pelvis Stable (Female) Exam: Deferred Rectal (Female) Exam: Normal Rectal Tone, Heme + Stool Back Exam: Normal Inspection, Full Range of Motion, NT Extremities: Normal Inspection, Normal Range of Motion, Non-Tender, Normal Capillary Refill, No Pedal Edema Neurological: Alert, Oriented, CN II-XII Intact, Normal Cognition, Normal Gait, Normal Reflexes, No Motor/Sensory Deficits Psychiatric: Normal Affect, Normal Mood Skin Exam: Pallor Lymphatic: No Adenopathy Course - Vital Signs Last Recorded V/S: Last Vital Signs Temp 36.1 C 07/05/19 10:04 Pulse 84 07/05/19 10:04 Resp 14 07/05/19 10:04 BP 92/39 L 07/05/19 10:04 Pulse Ox 100 07/05/19 10:04 - Orders/Labs/Meds Orders: Active Orders 24 hr Category Date Time Status RED BLOOD CELLS LP [BBK] Stat Lab 07/05/19 10:47 Results TYPE AND SCREEN [BBK] Stat Lab 07/05/19 10:47 Results Labs: Laboratory Tests 07/05/19 07/05/19 07/05/19 Range/Units 10:47 10:49 10:49 WBC 12.0 H (5.0-10.0) 10^3/uL RBC 2.39 L (4.2-5.4) 10^6/uL Hgb 5.8 L* D (12.0-16.0) g/dL Hct 19.4 L* (37.0-47.0) % MCV 81.2 (80-100) fL MCH 24.3 L (27.0-34.0) pg MCHC 29.9 L (33.0-35.0) g/dL Plt Count 542 H D (150-450) 10^3/uL Neut % (Auto) 85.1 H (42.2-75.2) % Lymph % (Auto) 10.3 L (20.5-50.1) % [place] % (Auto) 3.7 (2-8) % Eos % (Auto) 0.6 L (1.0-3.0) % Baso % (Auto) 0.3 (0.0-1.0) % Sodium 140 (136-145) mmol/L Potassium 4.0 (3.5-5.1) mmol/L Chloride 106 (98-107) mmol/L Carbon Dioxide 24 (21-32) mmol/L Anion Gap 14.0 H (7-13) mEq/L BUN 23 H (7-18) mg/dL Creatinine 0.70 (0.55-1.02) mg/dL Est Cr Clr Drug Dosing 49.88 mL/min Estimated GFR (MDRD) > 60 BUN/Creatinine Ratio 32.9 (No establ ref range) Glucose 103 H (74-99) mg/dL Calcium 8.1 L (8.5-10.1) mg/dL Total Bilirubin 0.2 (0.2-1.0) mg/dL AST 12 L (15-37) U/L ALT 12 L (14-59) U/L Alkaline Phosphatase 82 (46-116) U/L Total Protein 5.9 L (6.4-8.2) g/dL Albumin 3.0 L (3.4-5.0) g/dL Globulin 2.9 Albumin/Globulin Ratio 1.03 Blood Type O POSITIVE Gel Antibody Screen Negative Crossmatch See Detail Meds: Medications Discontinued Medications Generic Name Dose Route Start Last Admin Trade Name Freq PRN Reason Stop Dose Admin Pantoprazole Sodium 40 mg 07/05/19 11:19 Protonix Iv IVPUSH 07/05/19 11:20 ONETIME ONE Departure - Departure Time of Disposition: 11:45 Disposition: DC/Tfer to Acute Hospital 02 Condition: Poor Clinical Impression: GI bleed Qualifiers: GI bleed type/associated pathology: unspecified gastrointestinal hemorrhage type Qualified Code(s): K92.2 - Gastrointestinal hemorrhage, unspecified Anemia Qualifiers: Anemia type: unspecified type Qualified Code(s): D64.9 - Anemia, unspecified - Discharge Information *PRESCRIPTION DRUG MONITORING PROGRAM REVIEWED*: Not Applicable *COPY OF PRESCRIPTION DRUG MONITORING REPORT IN PATIENT YEN: Not Applicable Forms: Interfacility Transfer EMTALA Care Plan Goals: Discussed the patient's history, examination and lab results with Dr. Fatima ( [facility]). Dr. Fatima accepted the patient for continued evaluation and further treatment. The patient was given IV Protonix and a unit of blood was started prior to the patient being transferred. The patient was transported by [facility]. Sepsis Event Note - Evaluation Sepsis Screening Result: No Definite Risk - Focused Exam Vital Signs: Vital Signs Temp Pulse Resp BP Pulse Ox 07/05/19 10:04 36.1 C 84 14 92/39 L 100 Date Exam was Performed: 07/05/19 Time Exam was Performed: 11:42 - My Orders Last 24 Hours: My Active Orders 07/05/19 10:47 RED BLOOD CELLS LP [BBK] Stat TYPE AND SCREEN [BBK] Stat - Assessment/Plan Last 24 Hours: My Active Orders 07/05/19 10:47 RED BLOOD CELLS LP [BBK] Stat TYPE AND SCREEN [BBK] Stat
[2019-07-05 11:57] VITALS: BP 82/45; PULSE 80
== END 2019-07-05 12:05 ==
LOC: DL.ED 10:01
DX: K92.2 Gastrointestinal hemorrhage, unspecified (principal); D64.9 Anemia, unspecified; F17.210 Nicotine dependence, cigarettes, uncomplicated; E78.00 Pure hypercholesterolemia, unspecified; J44.9 Chronic obstructive pulmonary disease, unspecified; E03.9 Hypothyroidism, unspecified; Z86.73 Personal history of transient ischemic attack (TIA), and cerebral infarction without residual deficits; Z88.6 Allergy status to analgesic agent; Z88.5 Allergy status to narcotic agent; Z91.011 Allergy to milk products; Z79.899 Other long term (current) drug therapy
CPT/HCPCS: 36415; 36430; 80053; 82272; 85025; 86850; 86900; 86901; 86920; 86922; 99284; 99285; C9113; P9016

== ENCOUNTER 2019-09-25 15:18 | Emergency (ER) | payer MEDICARE, OTHER ==
[2019-09-25] MEDS: Sodium Chloride 0.9% 10 ML Syringe FLUSH PRN ×2 (15:35→17:32)
--- NOTE | 2019-09-25 15:36 | EDM.PDOC ---
ED HPI GENERAL MEDICAL PROBLEM - General Chief Complaint: General Stated Complaint: dizzy Time Seen by Provider: 09/25/19 15:35 Source of Information: Reports: Patient, RN, RN Notes Reviewed History Limitations: Reports: No Limitations - History of Present Illness INITIAL COMMENTS - FREE TEXT/NARRATIVE: Patient presents to ER with complaint of dizziness which began about 4:00 this morning. Patient states the dizziness is worse when she sits forward, bends over. Patient states she has a history of lung cancer, is not currently taking chemo. Patient states she does have a history of anemia and had blood transfusion last week. States she had this had dizziness in the past which resulted in an ear infection. 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 Patient states she does not feel she is dehydrated, states the dizziness is decreased when she lays still. Patient denies shortness of breath, states she had one small pain in the left side of her chest earlier this morning, but states she took some deep breaths and it resolved. Admits to some nausea at times, denies vomiting or diarrhea. Patient denies any fever chills, signs or symptoms of COVID, or exposure to COVID. Patient states she does have a cough but has always had a cough. Onset: Today Right Abdomen Pain Score (Numeric/FACES): 6 - Related Data Allergies Allergy/AdvReac Type Severity Reaction Status Date / Time cisplatin Allergy Severe Swelling Verified 09/25/19 15:25 aspirin AdvReac Stomach Verified 09/25/19 15:25 Upset codeine AdvReac Stomach Verified 09/25/19 15:25 Upset milk AdvReac Diarrhea Verified 09/25/19 15:25 morphine AdvReac Stomach Verified 09/25/19 15:25 Upset Home Meds: Home Meds Albuterol [Proventil HFA] 2 puff INH Q4HR PRN 08/07/14 [History] Levothyroxine [Synthroid] 25 mcg PO ACBREAKFAST 01/20/17 [History] Carboxymethylcellulose Sodium [Refresh Tears 0.5%] 1 - 2 drop EYEBOTH QID [History] Cetirizine [ZyrTEC] 10 mg PO DAILY 03/03/19 [History] carvediloL [Coreg] 25 mg PO BID 03/03/19 [History] lisinopriL [Lisinopril] 2.5 mg PO DAILY 03/03/19 [History] Loratadine/Pseudoephedrine [Allergy Relief D 12-Hour Tab] 1 tab PO Q12HR PRN [History] Fluticasone Propionate [Flonase] [address] DAILY 03/07/19 [History] atorvaSTATin [Lipitor] 80 mg PO BEDTIME #30 tablet 03/11/19 [Rx] Pantoprazole [ProTONIX] 40 mg PO DAILY 09/25/19 [History] Past Medical History - Past Health History Medical/Surgical History: Denies Medical/Surgical History HEENT History: Reports: Epistaxis, Impaired Vision Cardiovascular History: Reports: High Cholesterol, Hypertension Respiratory History: Reports: COPD, SOB Gastrointestinal History: Reports: GERD, GI Bleed Other Gastrointestinal History: lactose intolerance Genitourinary History: Reports: None SERVICES HOST History: Reports: Musculoskeletal History: Reports: Other (See Below) Other Musculoskeletal History: crushed vertebrae Neurological History: Reports: CVA, Seizure Other Neuro History: Denies seizure 03/03/2019 Psychiatric History: Reports: None Endocrine/Metabolic History: Reports: Hypothyroidism Hematologic History: Reports: Anemia Immunologic History: Reports: Immunosuppression, Other (See Below) Other Immunologic History: HX cx and Chemo Oncologic (Cancer) History: Reports: Lung Other Oncologic History: Lung cancer in 2005, 2011, 2018 Dermatologic History: Reports: None - Infectious Disease History Infectious Disease History: Reports: Chicken Pox - Past Surgical History HEENT Surgical History: Reports: Cataract Surgery Respiratory Surgical History: Reports: Lung Resection Other Respiratory Surgeries/Procedures: Hx of chemo GI Surgical History: Reports: Colonoscopy Female Surgical History: Reports: Hysterectomy Social & Family History - Family History Family Medical History: Noncontributory - Tobacco Use Smoking Status *Q: Current Every Day Smoker Years of Tobacco use: 50 Packs/Tins Daily: 0.5 - Caffeine Use Caffeine Use: Reports: Coffee, Soda, Tea - Recreational Drug Use Recreational Drug Use: No - Living Situation & Occupation Living situation: Reports: Occupation: Retired ED ROS GENERAL - Review of Systems Review Of Systems: Comprehensive ROS is negative, except as noted in HPI. ED EXAM, GENERAL - Physical Exam Exam: See Below Exam Limited By: No Limitations General Appearance: Alert, WD/WN, No Apparent Distress Eye Exam: Bilateral Eye: EOMI, Normal Inspection Ears: Normal External Exam, Hearing Grossly Normal Nose: Normal Inspection Throat/Mouth: Normal Inspection Head: Atraumatic, Normocephalic Neck: Normal Inspection, Supple, Non-Tender, Full Range of Motion Respiratory/Chest: No Respiratory Distress, No Accessory Muscle Use, Chest Non- Tender, Wheezing (exp) Cardiovascular: Normal Peripheral Pulses, Regular Rate, Rhythm, No Edema, No Gallop, No JVD, No Murmur, No Rub Peripheral Pulses: 2+: Radial (L), Radial (R) GI/Abdominal: Normal Bowel Sounds, Soft, Non-Tender, No Organomegaly, No Distention (Female) Exam: Deferred Rectal (Female) Exam: Deferred Back Exam: Normal Inspection, Full Range of Motion, NT Extremities: Normal Inspection, Non-Tender, No Pedal Edema, Normal Capillary Refill, Limited Range of Motion Neurological: Alert, Oriented, CN II-XII Intact, Normal Cognition, Normal Gait, Normal Reflexes, No Motor/Sensory Deficits Psychiatric: Normal Affect, Normal Mood Skin Exam: Warm, Dry, Intact, Normal Color, No Rash Lymphatic: No Adenopathy Course - Vital Signs Last Recorded V/S: Last Vital Signs Temp 98.4 F 09/25/19 15:24 Pulse 74 09/25/19 16:51 Resp 16 09/25/19 16:51 BP 169/64 H 09/25/19 16:51 Pulse Ox 98 09/25/19 16:51 - Orders/Labs/Meds Orders: Active Orders 24 hr Category Date Time Status EKG Documentation Completion [RC] STAT Care 09/25/19 15:23 Active Implanted Port Access [RC] ONETIME Care 09/25/19 17:28 Active Implanted Port De-Access [RC] ONETIME Care 09/25/19 17:28 Active Peripheral IV Care [RC] . DIRECTED Care 09/25/19 15:23 Active Sodium Chloride 0.9% [Saline Flush] Med 09/25/19 15:23 Active 10 ml FLUSH ASDIRECTED PRN Peripheral IV Insertion Adult [OM.PC] Stat Oth 09/25/19 15:23 Ordered Medication Orders Sodium Chloride (Saline Flush) 10 ml FLUSH ASDIRECTED PRN PRN Reason: Keep Vein Open Last Admin: 09/25/19 15:35 Dose: 10 ml Labs: Laboratory Tests 09/25/19 09/25/19 09/25/19 Range/Units 15:36 15:36 15:36 WBC 5.2 (5.0-10.0) 10^3/uL RBC 5.10 (4.2-5.4) 10^6/uL Hgb 11.5 L D (12.0-16.0) g/dL Hct 37.4 (37.0-47.0) % MCV 73.3 L D (80-100) fL MCH 22.5 L (27.0-34.0) pg MCHC 30.7 L (33.0-35.0) g/dL Plt Count 242 D (150-450) 10^3/uL Neut % (Auto) 57.8 (42.2-75.2) % Lymph % (Auto) 28.0 (20.5-50.1) % [place] % (Auto) 10.3 H (2-8) % Eos % (Auto) 3.3 H (1.0-3.0) % Baso % (Auto) 0.6 (0.0-1.0) % Sodium 143 (136-145) mmol/L Potassium 3.8 (3.5-5.1) mmol/L Chloride 106 (98-107) mmol/L Carbon Dioxide 29 (21-32) mmol/L Anion Gap 11.8 (7-13) mEq/L BUN 11 (7-18) mg/dL Creatinine 0.80 (0.55-1.02) mg/dL Est Cr Clr Drug Dosing 43.64 mL/min Estimated GFR (MDRD) > 60 BUN/Creatinine Ratio 13.8 (No establ ref range) Glucose 89 (74-99) mg/dL Calcium 8.7 (8.5-10.1) mg/dL Magnesium 2.0 (1.8-2.4) mg/dL Total Bilirubin 0.3 (0.2-1.0) mg/dL AST 16 (15-37) U/L ALT 15 (14-59) U/L Alkaline Phosphatase 94 (46-116) U/L Troponin I < 0.017 (0.000-0.056) ng/mL Total Protein 6.6 (6.4-8.2) g/dL Albumin 3.3 L (3.4-5.0) g/dL Globulin 3.3 Albumin/Globulin Ratio 1.00 Urine Color (YELLOW) Urine Appearance (CLEAR) Urine pH (5.0-9.0) Ur Specific [place] (1.005-1.030) Urine Protein (NEGATIVE) Urine Glucose (UA) (NEGATIVE) Urine Ketones (NEGATIVE) Urine Occult Blood (NEGATIVE) Urine Nitrite (NEGATIVE) Urine Bilirubin (NEGATIVE) Urine Urobilinogen (0.2-1.0) mg/dL Ur Leukocyte Esterase (NEGATIVE) 09/25/19 Range/Units 15:49 WBC (5.0-10.0) 10^3/uL RBC (4.2-5.4) 10^6/uL Hgb (12.0-16.0) g/dL Hct (37.0-47.0) % MCV (80-100) fL MCH (27.0-34.0) pg MCHC (33.0-35.0) g/dL Plt Count (150-450) 10^3/uL Neut % (Auto) (42.2-75.2) % Lymph % (Auto) (20.5-50.1) % [place] % (Auto) (2-8) % Eos % (Auto) (1.0-3.0) % Baso % (Auto) (0.0-1.0) % Sodium (136-145) mmol/L Potassium (3.5-5.1) mmol/L Chloride (98-107) mmol/L Carbon Dioxide (21-32) mmol/L Anion Gap (7-13) mEq/L BUN (7-18) mg/dL Creatinine (0.55-1.02) mg/dL Est Cr Clr Drug Dosing mL/min Estimated GFR (MDRD) BUN/Creatinine Ratio (No establ ref range) Glucose (74-99) mg/dL Calcium (8.5-10.1) mg/dL Magnesium (1.8-2.4) mg/dL Total Bilirubin (0.2-1.0) mg/dL AST (15-37) U/L ALT (14-59) U/L Alkaline Phosphatase (46-116) U/L Troponin I (0.000-0.056) ng/mL Total Protein (6.4-8.2) g/dL Albumin (3.4-5.0) g/dL Globulin Albumin/Globulin Ratio Urine Color Yellow (YELLOW) Urine Appearance Clear (CLEAR) Urine pH 6.5 (5.0-9.0) Ur Specific [place] 1.025 (1.005-1.030) Urine Protein Negative (NEGATIVE) Urine Glucose (UA) Negative (NEGATIVE) Urine Ketones Negative (NEGATIVE) Urine Occult Blood Negative (NEGATIVE) Urine Nitrite Negative (NEGATIVE) Urine Bilirubin Negative (NEGATIVE) Urine Urobilinogen 1.0 (0.2-1.0) mg/dL Ur Leukocyte Esterase Negative (NEGATIVE) Meds: Medications Generic Name Dose Route Start Last Admin Trade Name Freq PRN Reason Stop Dose Admin Sodium Chloride 10 ml 09/25/19 15:23 09/25/19 15:35 Saline Flush FLUSH 10 ml ASDIRECTED PRN Administration Keep Vein Open Discontinued Medications Generic Name Dose Route Start Last Admin Trade Name Freq PRN Reason Stop Dose Admin Heparin Sodium (Porcine) 500 units 09/25/19 17:28 Heparin Lock Flush 100 Units/Ml FLUSH 09/25/19 17:29 ASDIRECTED ONE Meclizine HCl 25 mg 09/25/19 17:03 09/25/19 17:21 Antivert PO 09/25/19 17:04 25 mg ONETIME ONE Administration - Radiology Interpretation Free Text/Narrative:: -Head CT wo contrast: TECHNIQUE: Imaging protocol: Computed tomography of the head without contrast. Radiation optimization: All CT scans at this facility use at least one of these dose optimization techniques: automated exposure control; mA and/or kV adjustment per patient size (includes targeted exams where dose is matched to clinical indication); or iterative reconstruction. COMPARISON: CT Ang Head 03/04/2019 10:05 AM FINDINGS: Brain: Age-related atrophy and chronic white matter ischemic changes, with no evidence of an acute intracranial abnormality. No hemorrhage, mass effect or midline shift. Ventricles: Normal. No ventriculomegaly. Bones/joints: Status post left frontal temporal craniotomy. Sinuses: Visualized sinuses are unremarkable. No fluid levels. Mastoid air cells: Visualized mastoid air cells are well aerated. Vasculature: Left aneurysm repair noted. Soft tissues: No acute changes IMPRESSION: 1. Age-related atrophy and chronic white matter ischemic changes, with no evidence of an acute intracranial abnormality. 2. No hemorrhage, mass effect or midline shift. Thank you for allowing us to participate in the care of your patient. Dictated and Authenticated by: Bruno Worrell DO 09/25/2019 4:47 PM Central Time ([place] & [place]) See rad report - Re-Assessments/Exams Free Text/Narrative Re-Assessment/Exam: 09/25/19 17:31 Patient has no nystagmus with turning head to the left or right, but states dizziness is worse with turning head to the right. Departure - Departure Time of Disposition: 17:29 Disposition: Home, Self-Care 01 Condition: Fair Clinical Impression: Dizziness, Vertigo - Discharge Information *PRESCRIPTION DRUG MONITORING PROGRAM REVIEWED*: No *COPY OF PRESCRIPTION DRUG MONITORING REPORT IN PATIENT YEN: No Instructions: Vertigo, [id number], Dizziness, [id number] Forms: ED Department Discharge Additional Instructions: RX: Meclizine Drink plenty of water Follow up with your primary care facility Sepsis Event Note (ED) - Evaluation Sepsis Screening Result: No Definite Risk - Focused Exam Vital Signs: Vital Signs Temp Pulse Resp BP Pulse Ox 09/25/19 16:51 74 16 169/64 H 98 09/25/19 15:24 98.4 F 82 16 161/110 H 99 - My Orders Last 24 Hours: My Active Orders 09/25/19 15:23 EKG Documentation Completion [RC] STAT Peripheral IV Care [RC] . DIRECTED Sodium Chloride 0.9% [Saline Flush] 10 ml FLUSH ASDIRECTED PRN Peripheral IV Insertion Adult [OM.PC] Stat 09/25/19 17:28 Implanted Port Access [RC] ONETIME Implanted Port De-Access [RC] ONETIME - Assessment/Plan Last 24 Hours: My Active Orders 09/25/19 15:23 EKG Documentation Completion [RC] STAT Peripheral IV Care [RC] . DIRECTED Sodium Chloride 0.9% [Saline Flush] 10 ml FLUSH ASDIRECTED PRN Peripheral IV Insertion Adult [OM.PC] Stat 09/25/19 17:28 Implanted Port Access [RC] ONETIME Implanted Port De-Access [RC] ONETIME
[2019-09-25 16:05] LABS: ANION GAP 11.8 mEq/L (7-13); CHLORIDE,CL 106 mmol/L (98-107); SODIUM,NA 143 mmol/L (136-145)
--- NOTE | 2019-09-25 16:47 | CT ---
PROCEDURE INFORMATION: Exam: CT Head Without Contrast Exam date and time: 09/25/2019 4:32 PM Age: 73 years old Clinical indication: Dizziness; Prior surgery; Additional info: Dizziness, HX aneurysm TECHNIQUE: Imaging protocol: Computed tomography of the head without contrast. Radiation optimization: All CT scans at this facility use at least one of these dose optimization techniques: automated exposure control; mA and/or kV adjustment per patient size (includes targeted exams where dose is matched to clinical indication); or iterative reconstruction. COMPARISON: CT Ang Head 03/04/2019 10:05 AM FINDINGS: Brain: Age-related atrophy and chronic white matter ischemic changes, with no evidence of an acute intracranial abnormality. No hemorrhage, mass effect or midline shift. Ventricles: Normal. No ventriculomegaly. Bones/joints: Status post left frontal temporal craniotomy. Sinuses: Visualized sinuses are unremarkable. No fluid levels. Mastoid air cells: Visualized mastoid air cells are well aerated. Vasculature: Left aneurysm repair noted. Soft tissues: No acute changes IMPRESSION: 1. Age-related atrophy and chronic white matter ischemic changes, with no evidence of an acute intracranial abnormality. 2. No hemorrhage, mass effect or midline shift.
[2019-09-25 16:52] VITALS: BP 169/64; PULSE 74
[2019-09-25] MEDS ORDERED: Meclizine 12.5 MG Tab PO ONE (17:03)
== END 2019-09-25 17:28 | disposition home or self-care (01) ==
LOC: DL.ED 15:18
DX: R42 Dizziness and giddiness (principal); I10 Essential (primary) hypertension; E78.00 Pure hypercholesterolemia, unspecified; J44.9 Chronic obstructive pulmonary disease, unspecified; K21.9 Gastro-esophageal reflux disease without esophagitis; E03.9 Hypothyroidism, unspecified; F17.210 Nicotine dependence, cigarettes, uncomplicated; Z88.8 Allergy status to other drugs, medicaments and biological substances; Z88.5 Allergy status to narcotic agent; Z91.011 Allergy to milk products; Z79.899 Other long term (current) drug therapy
CPT/HCPCS: 36415; 70450; 80053; 81003; 83735; 84484; 85025; 93005; 99284; A9270; J1642; 99283

== ENCOUNTER 2020-03-30 13:40 | Emergency (ER) | payer MEDICARE, OTHER ==
--- NOTE | 2020-03-30 14:27 | EDM.PDOC ---
ED HPI GENERAL MEDICAL PROBLEM - General Stated Complaint: BACK PAIN AND CONSTIPATION 3 DAYS Time Seen by Provider: 03/30/20 14:18 Source of Information: Reports: Patient History Limitations: Reports: No Limitations - History of Present Illness INITIAL COMMENTS - FREE TEXT/NARRATIVE: This 74 yo female patient reports to the ED with lower back pain, constipation and right lower abdominal pain for the past 3-4 days. The patient reports she was seen in the [facility] 2 days ago, diagnoses with a UTI and started on Cipro. The patient took 2 doses of the Cipro, but stopped after reading some of the side effects of the medication. The patient reports she called the [facility] and was advised to come to the ED for evaluation and treatment. The patient reports she did take a stool softener last night, but did not have much of a bowel movement after taking the stool softener. Onset: Gradual Onset Date: 03/27/20 Duration: Constant, Getting Worse Location: Reports: Abdomen, Back Quality: Reports: Ache Severity: Moderate Improves with: Reports: None Worsens with: Reports: None Context: Reports: Other Bilateral Middle Back Pain Score (Numeric/FACES): 8 - Related Data Allergies Allergy/AdvReac Type Severity Reaction Status Date / Time cisplatin Allergy Severe Swelling Verified 03/30/20 14:32 aspirin AdvReac Stomach Verified 03/30/20 14:32 Upset codeine AdvReac Stomach Verified 03/30/20 14:32 Upset milk AdvReac Diarrhea Verified 03/30/20 14:32 morphine AdvReac Stomach Verified 03/30/20 14:32 Upset Home Meds: Home Meds Albuterol [Proventil HFA] 2 puff INH Q4HR PRN 08/07/14 [History] Levothyroxine [Synthroid] 25 mcg PO ACBREAKFAST 01/20/17 [History] Carboxymethylcellulose Sodium [Refresh Tears 0.5%] 1 - 2 drop EYEBOTH QID 03/03/19 [History] Cetirizine [ZyrTEC] 10 mg PO DAILY 03/03/19 [History] carvediloL [Coreg] 25 mg PO BID 03/03/19 [History] lisinopriL [Lisinopril] 2.5 mg PO DAILY 03/03/19 [History] Loratadine/Pseudoephedrine [Allergy Relief D 12-Hour Tab] 1 tab PO Q12HR PRN 03/04/19 [History] Fluticasone Propionate [Flonase] [address] DAILY 03/07/19 [History] atorvaSTATin [Lipitor] 80 mg PO BEDTIME #30 tablet 03/11/19 [Rx] Pantoprazole [ProTONIX] 40 mg PO DAILY 09/25/19 [History] Past Medical History - Past Health History Medical/Surgical History: Denies Medical/Surgical History HEENT History: Reports: Epistaxis, Impaired Vision Cardiovascular History: Reports: High Cholesterol, Hypertension Respiratory History: Reports: COPD, SOB Gastrointestinal History: Reports: GERD, GI Bleed Other Gastrointestinal History: lactose intolerance Genitourinary History: Reports: None PLATFORM CONSULTANT History: Reports: Musculoskeletal History: Reports: Other (See Below) Other Musculoskeletal History: crushed vertebrae Neurological History: Reports: CVA, Seizure Other Neuro History: Denies seizure 03/03/2019 Psychiatric History: Reports: None Endocrine/Metabolic History: Reports: Hypothyroidism Hematologic History: Reports: Anemia Immunologic History: Reports: Immunosuppression, Other (See Below) Other Immunologic History: HX cx and Chemo Oncologic (Cancer) History: Reports: Lung Other Oncologic History: Lung cancer in 2006, 2011, 2018 Dermatologic History: Reports: None - Infectious Disease History Infectious Disease History: Reports: Chicken Pox - Past Surgical History HEENT Surgical History: Reports: Cataract Surgery Respiratory Surgical History: Reports: Lung Resection Other Respiratory Surgeries/Procedures: Hx of chemo GI Surgical History: Reports: Colonoscopy Female Surgical History: Reports: Hysterectomy Social & Family History - Family History Family Medical History: No Pertinent Family History - Caffeine Use Caffeine Use: Reports: Coffee, Soda, Tea - Living Situation & Occupation Living situation: Reports: Occupation: Retired ED ROS GENERAL - Review of Systems Review Of Systems: Comprehensive ROS is negative, except as noted in HPI. ED EXAM, GI/ABD - Physical Exam Exam: See Below Exam Limited By: No Limitations General Appearance: Alert, WD/WN, Moderate Distress Eyes: Bilateral: Normal Appearance, EOMI Ears: Normal External Exam, Normal Canal, Hearing Grossly Normal, Normal TMs Nose: Normal Inspection, Normal Mucosa, No Blood Throat/Mouth: Normal Inspection, Normal Lips, Normal Teeth, Normal Gums, Normal Oropharynx, Normal Voice, No Airway Compromise Head: Atraumatic Neck: Normal Inspection, Supple, Non-Tender, Full Range of Motion Respiratory/Chest: No Respiratory Distress, Lungs Clear, Normal Breath Sounds, No Accessory Muscle Use, Chest Non-Tender Cardiovascular: Normal Peripheral Pulses, Regular Rate, Rhythm, No Edema, No Gallop, No JVD, No Murmur, No Rub GI/Abdominal Exam: Tender (right sided) (Female) Exam: Deferred Rectal (Female) Exam: Deferred Back Exam: Paraspinal Tenderness Extremities: Normal Inspection, Normal Range of Motion, Non-Tender, Normal Capillary Refill, No Pedal Edema Neurological: Alert, Oriented, CN II-XII Intact, Normal Cognition, Normal Gait, Normal Reflexes, No Motor/Sensory Deficits Psychiatric: Normal Affect, Normal Mood Skin Exam: Warm, Dry, Intact, Normal Color, No Rash Lymphatic: No Adenopathy Course - Vital Signs Last Recorded V/S: Last Vital Signs Temp 36.6 C 03/30/20 13:45 Pulse 87 03/30/20 13:45 Resp 18 03/30/20 13:45 BP 139/71 03/30/20 13:45 Pulse Ox 98 03/30/20 13:45 - Orders/Labs/Meds Orders: Active Orders 24 hr Category Date Time Status CULTURE BLOOD [BC] Stat Lab 03/30/20 14:21 Ordered Labs: Laboratory Tests 03/30/20 03/30/20 03/30/20 Range/Units 14:37 14:37 14:37 WBC 4.6 L (5.0-10.0) 10^3/uL RBC 4.34 (4.2-5.4) 10^6/uL Hgb 12.6 (12.0-16.0) g/dL Hct 38.0 (37.0-47.0) % MCV 87.6 D (80-100) fL MCH 29.0 (27.0-34.0) pg MCHC 33.2 (33.0-35.0) g/dL Plt Count 223 (150-450) 10^3/uL Neut % (Auto) 63.3 (42.2-75.2) % Lymph % (Auto) 24.6 (20.5-50.1) % [place] % (Auto) 8.7 H (2-8) % Eos % (Auto) 3.0 (1.0-3.0) % Baso % (Auto) 0.4 (0.0-1.0) % Sodium 141 (136-145) mmol/L Potassium 3.6 (3.5-5.1) mmol/L Chloride 103 (98-107) mmol/L Carbon Dioxide 26 (21-32) mmol/L Anion Gap 15.6 H (7-13) mEq/L BUN 10 (7-18) mg/dL Creatinine 0.71 (0.55-1.02) mg/dL Est Cr Clr Drug Dosing 48.42 mL/min Estimated GFR (MDRD) > 60 BUN/Creatinine Ratio 14.1 (No establ ref range) Glucose 105 H (74-99) mg/dL Lactic Acid 0.8 (0.4-2.0) mmol/L Calcium 9.0 (8.5-10.1) mg/dL Total Bilirubin 0.4 (0.2-1.0) mg/dL AST 13 L (15-37) U/L ALT 18 (14-59) U/L Alkaline Phosphatase 111 (46-116) U/L Total Protein 6.7 (6.4-8.2) g/dL Albumin 3.8 (3.4-5.0) g/dL Globulin 2.9 Albumin/Globulin Ratio 1.3 Urine Color (YELLOW) Urine Appearance (CLEAR) Urine pH (5.0-9.0) Ur Specific [place] (1.005-1.030) Urine Protein (NEGATIVE) Urine Glucose (UA) (NEGATIVE) Urine Ketones (NEGATIVE) Urine Occult Blood (NEGATIVE) Urine Nitrite (NEGATIVE) Urine Bilirubin (NEGATIVE) Urine Urobilinogen (0.2-1.0) mg/dL Ur Leukocyte Esterase (NEGATIVE) 03/30/20 Range/Units 15:04 WBC (5.0-10.0) 10^3/uL RBC (4.2-5.4) 10^6/uL Hgb (12.0-16.0) g/dL Hct (37.0-47.0) % MCV (80-100) fL MCH (27.0-34.0) pg MCHC (33.0-35.0) g/dL Plt Count (150-450) 10^3/uL Neut % (Auto) (42.2-75.2) % Lymph % (Auto) (20.5-50.1) % [place] % (Auto) (2-8) % Eos % (Auto) (1.0-3.0) % Baso % (Auto) (0.0-1.0) % Sodium (136-145) mmol/L Potassium (3.5-5.1) mmol/L Chloride (98-107) mmol/L Carbon Dioxide (21-32) mmol/L Anion Gap (7-13) mEq/L BUN (7-18) mg/dL Creatinine (0.55-1.02) mg/dL Est Cr Clr Drug Dosing mL/min Estimated GFR (MDRD) BUN/Creatinine Ratio (No establ ref range) Glucose (74-99) mg/dL Lactic Acid (0.4-2.0) mmol/L Calcium (8.5-10.1) mg/dL Total Bilirubin (0.2-1.0) mg/dL AST (15-37) U/L ALT (14-59) U/L Alkaline Phosphatase (46-116) U/L Total Protein (6.4-8.2) g/dL Albumin (3.4-5.0) g/dL Globulin Albumin/Globulin Ratio Urine Color Yellow (YELLOW) Urine Appearance Clear (CLEAR) Urine pH 6.5 (5.0-9.0) Ur Specific [place] 1.020 (1.005-1.030) Urine Protein Negative (NEGATIVE) Urine Glucose (UA) Negative (NEGATIVE) Urine Ketones 15 H (NEGATIVE) Urine Occult Blood Negative (NEGATIVE) Urine Nitrite Negative (NEGATIVE) Urine Bilirubin Negative (NEGATIVE) Urine Urobilinogen 1.0 (0.2-1.0) mg/dL Ur Leukocyte Esterase Negative (NEGATIVE) Departure - Departure Time of Disposition: 16:54 Disposition: Home, Self-Care 01 Condition: Fair Clinical Impression: Left ovarian cyst, Flatulence, eructation, and gas pain Low back pain Qualifiers: Chronicity: chronic Back pain laterality: right Sciatica presence: without sciatica Qualified Code(s): M54.5 - Low back pain; G89.29 - Other chronic pain - Discharge Information *PRESCRIPTION DRUG MONITORING PROGRAM REVIEWED*: Not Applicable *COPY OF PRESCRIPTION DRUG MONITORING REPORT IN PATIENT YEN: Not Applicable Instructions: Chronic Back Pain, [id number] Forms: ED Department Discharge Care Plan Goals: The patient was advised of the examination, lab and CT results during the visit. The patient was encouraged to follow-up with her primary care facility for further evaluation (MRI for low back pain and [employer] for left ovarian cystic structure). The patient was encouraged to use an adult dose of MiraLax daily for the next 3-4 days. If the patient has any additional symptoms or concerns, the patient should either return to the emergency department or visit her primary care facility. Sepsis Event Note (ED) - Focused Exam Vital Signs: Vital Signs Temp Pulse Resp BP Pulse Ox 03/30/20 13:45 36.6 C 87 18 139/71 98 - My Orders Last 24 Hours: My Active Orders 03/30/20 14:21 CULTURE BLOOD [BC] Stat - Assessment/Plan Last 24 Hours: My Active Orders 03/30/20 14:21 CULTURE BLOOD [BC] Stat
[2020-03-30 14:32] VITALS: BP 139/71; PULSE 87
[2020-03-30 15:04] LABS: ANION GAP 15.6 mEq/L (7-13); CHLORIDE,CL 103 mmol/L (98-107); SODIUM,NA 141 mmol/L (136-145)
--- NOTE | 2020-03-30 16:19 | CT ---
PROCEDURE INFORMATION: Exam: CT Lumbar Spine Without Contrast Exam date and time: 03/30/2020 3:46 PM Age: 74 years old Clinical indication: Low back pain TECHNIQUE: Imaging protocol: Computed tomography images of the lumbar spine without contrast. Radiation optimization: All CT scans at this facility use at least one of these dose optimization techniques: automated exposure control; mA and/or kV adjustment per patient size (includes targeted exams where dose is matched to clinical indication); or iterative reconstruction. COMPARISON: No relevant prior studies available. FINDINGS: Vertebrae: Superior endplate depression of L3, age undetermined. Correlate with MRI. Grade 1 retrolisthesis of L1 on L2. Discs/Spinal canal/Neural foramina: Multilevel degenerative disc disease characterized by disc space narrowing, endplate spurring and vacuum phenomenon. There is associated moderate bulges at every level of the lumbar spine. Bilateral neural foraminal stenosis at L3-L4, L4-L5 and L5-S1. Mild facet arthrosis at L3-L4, L4-L5. Spinal canal stenosis at L2-L3, L3-L4 and L4-L5 and L5-S1. Stomach and bowel: Colonic diverticulosis. Vasculature: Atherosclerosis. Soft tissues: Unremarkable. IMPRESSION: Superior endplate depression of L3, age undetermined. Correlate with MRI. Degenerative changes.
--- NOTE | 2020-03-30 16:37 | CT ---
PROCEDURE INFORMATION: Exam: CT Abdomen And Pelvis Without Contrast Exam date and time: 03/30/2020 3:46 PM Age: 74 years old Clinical indication: Other: Low back pain TECHNIQUE: Imaging protocol: Computed tomography of the abdomen and pelvis without contrast. Radiation optimization: All CT scans at this facility use at least one of these dose optimization techniques: automated exposure control; mA and/or kV adjustment per patient size (includes targeted exams where dose is matched to clinical indication); or iterative reconstruction. COMPARISON: CT Abdomen w Cont 08/23/2015 9:11 AM FINDINGS: Lungs: minimal scarring at the right pulmonary base. Liver: Normal. No mass. Gallbladder and bile ducts: Gallbladder sludge. Pancreas: Normal. No ductal dilation. Spleen: Normal. No splenomegaly. Adrenal glands: Normal. No mass. Kidneys and ureters: Normal. No hydronephrosis. Stomach and bowel: Colonic diverticulosis without evidence of acute diverticulitis. Appendix: Unable to identify the appendix. Intraperitoneal space: Unremarkable. No free air. No significant fluid collection. Vasculature: Atherosclerosis. Lymph nodes: Unremarkable. No enlarged lymph nodes. Urinary bladder: Unremarkable as visualized. Reproductive: Hysterectomy. 2.5 cm left ovarian cyst. Continued follow-up. Early cystic malignancy is not excluded. Bones/joints: Degenerative changes in the spine. Superior endplate depression of L3, age undetermined. Follow-up with MRI. Multilevel degenerative disc disease. Soft tissues: See "Reproductive" finding. IMPRESSION: 2.5 cm left ovarian cyst. Continued follow-up. Early cystic malignancy is not excluded. Colonic diverticulosis without evidence of acute diverticulitis. Superior endplate depression of L3, age undetermined. Follow-up with MRI. Multilevel degenerative disc disease.
== END 2020-03-30 17:05 | disposition home or self-care (01) ==
LOC: DL.ED 13:40
DX: N83.202 Unspecified ovarian cyst, left side (principal); G89.29 Other chronic pain; R14.3 Flatulence; R14.2 Eructation; M54.5 Low back pain; E78.00 Pure hypercholesterolemia, unspecified; I10 Essential (primary) hypertension; K21.9 Gastro-esophageal reflux disease without esophagitis; J44.9 Chronic obstructive pulmonary disease, unspecified; E03.9 Hypothyroidism, unspecified; Z79.899 Other long term (current) drug therapy; Z88.6 Allergy status to analgesic agent; Z88.5 Allergy status to narcotic agent; Z91.011 Allergy to milk products; Z86.73 Personal history of transient ischemic attack (TIA), and cerebral infarction without residual deficits
CPT/HCPCS: 36415; 72131; 74176; 80053; 81003; 83605; 85025; 87040; 99283; 99284-25

== ENCOUNTER 2021-05-16 19:28 | Emergency (ER) | payer MEDICARE, OTHER ==
[2021-05-16 20:14] VITALS: BP 157/68; PULSE 85
[2021-05-16] MEDS ORDERED: Phenylephrine 0.5% Nasal Spray 15 ML Bot NASBOTH ONE (20:19)
== END 2021-05-16 20:28 | disposition home or self-care (01) ==
LOC: DL.ED 19:28
DX: R04.0 Epistaxis (principal); E78.00 Pure hypercholesterolemia, unspecified; I10 Essential (primary) hypertension; E03.9 Hypothyroidism, unspecified; J44.9 Chronic obstructive pulmonary disease, unspecified; K21.9 Gastro-esophageal reflux disease without esophagitis; Z86.73 Personal history of transient ischemic attack (TIA), and cerebral infarction without residual deficits; Z88.5 Allergy status to narcotic agent; Z91.011 Allergy to milk products; Z88.8 Allergy status to other drugs, medicaments and biological substances
CPT/HCPCS: 99283; A9270

== ENCOUNTER 2021-05-19 13:31 | Emergency (ER) | payer MEDICARE, OTHER ==
[2021-05-19 13:54] VITALS: BP 189/81; PULSE 57
[2021-05-19] MEDS ORDERED: Phenylephrine 0.5% Nasal Spray 15 ML Bot NASBOTH ONE (14:03)
[2021-05-19 14:51] LABS: ANION GAP 10.9 mEq/L (7-13); CHLORIDE,CL 109 mmol/L (98-107); SODIUM,NA 143 mmol/L (136-145)
== END 2021-05-19 15:28 | disposition home or self-care (01) ==
LOC: DL.ED 13:31
DX: R04.0 Epistaxis (principal); E78.00 Pure hypercholesterolemia, unspecified; I10 Essential (primary) hypertension; J44.9 Chronic obstructive pulmonary disease, unspecified; K21.9 Gastro-esophageal reflux disease without esophagitis; Z86.73 Personal history of transient ischemic attack (TIA), and cerebral infarction without residual deficits; Z88.5 Allergy status to narcotic agent; Z91.011 Allergy to milk products; Z88.8 Allergy status to other drugs, medicaments and biological substances; Z79.899 Other long term (current) drug therapy; Z72.0 Tobacco use
CPT/HCPCS: 36415; 80053; 85025; 85610; 99283; A9270

== ENCOUNTER 2022-06-23 05:42 | Day surgery (SDC) | payer MEDICARE, OTHER ==
[2022-06-23] MEDS ORDERED: fentaNYL 100 MCG/2 ML SDV IV ONE ×3 (05:43→06:36)
[2022-06-23] MEDS ORDERED: Midazolam 1 MG/ML 2 ML SDV IV ONE ×3 (05:43→06:39)
[2022-06-23] MEDS ORDERED: Sodium Chloride 0.9% 10 ML Syringe FLUSH PRN (06:00)
[2022-06-23] MEDS ORDERED: Dextrose 5%-0.45% NaCl 1,000 ML IV SCH (06:00)
[2022-06-23] MEDS ORDERED: fentaNYL 100 MCG/2 ML SDV ONE (06:25)
[2022-06-23] MEDS ORDERED: Midazolam 1 MG/ML 2 ML SDV ONE (06:25)
[2022-06-23] MEDS ORDERED: Sodium Chloride 0.9% 10 ML Syringe FLUSH SCH (09:00)
[2022-06-23 10:48] VITALS: BP 167/67; PULSE 86
== END 2022-06-23 09:00 | disposition home or self-care (01) ==
LOC: DL.ENDO 05:42
PROVIDERS: ATTEND Internal Medicine Gastroenterology
DX: K22.2 Esophageal obstruction (principal); K21.9 Gastro-esophageal reflux disease without esophagitis; E78.00 Pure hypercholesterolemia, unspecified; E78.5 Hyperlipidemia, unspecified; I10 Essential (primary) hypertension; Z86.010 Personal history of colon polyps; Z80.0 Family history of malignant neoplasm of digestive organs
CPT/HCPCS: 88104; 88305; J2250; J3010; J7042

== ENCOUNTER 2022-06-26 13:10 | Emergency (ER) | payer MEDICARE, OTHER ==
[2022-06-26 14:14] LABS: ANION GAP 12.4 mEq/L (7-13)
[2022-06-26 14:37] VITALS: BP 131/63; PULSE 78
== END 2022-06-26 14:31 | disposition home or self-care (01) ==
LOC: DL.ED 13:10
DX: K22.2 Esophageal obstruction (principal); E03.9 Hypothyroidism, unspecified; J44.9 Chronic obstructive pulmonary disease, unspecified; E78.00 Pure hypercholesterolemia, unspecified; I10 Essential (primary) hypertension; Z86.73 Personal history of transient ischemic attack (TIA), and cerebral infarction without residual deficits; Z88.5 Allergy status to narcotic agent; Z91.011 Allergy to milk products; Z88.8 Allergy status to other drugs, medicaments and biological substances; Z79.899 Other long term (current) drug therapy; Z86.16 Personal history of COVID-19; Z72.0 Tobacco use
CPT/HCPCS: 36415; 71045; 80053; 85025; 99284

== ENCOUNTER 2022-12-30 16:26 | Emergency (ER) | payer MEDICARE, OTHER ==
[2022-12-30 17:11] LABS: ANION GAP 17.2 mEq/L (7-13); CALCIUM 8.7 mg/dL (8.5-10.1); CREATININE 0.87 mg/dL (0.55-1.02); EST CRCL DRUG DOSING (CG) 34.32 mL/min; MAGNESIUM 1.5 mg/dL (1.8-2.4); PHOSPHORUS 2.7 mg/dL (2.6-4.7); POTASSIUM,K 3.2 mmol/L (3.5-5.1)
[2022-12-30] MEDS ORDERED: Potassium Chloride 10 MEQ Tab.ER PO ONE (17:21)
[2022-12-30] MEDS: Lactated Ringers 1,000 ML IV SCH (17:24)
[2022-12-30] MEDS: Potassium Chloride 20 MEQ in Premix Bag 1 BAG IV ONE ×2 (17:29→17:40)
[2022-12-30] MEDS: Potassium Chloride 10% 20 MEQ/15 ML Soln 15 ML UD Cup ONE (17:39)
[2022-12-30 17:59] LABS: APPEARANCE,URINE SLIGHTLY CLOUDY (CLEAR); BILIRUBIN,URINE LARGE (NEGATIVE); COLOR,URINE DARK YELLOW (YELLOW); GLUCOSE,URINE NEGATIVE (NEGATIVE); KETONES,URINE 80 (NEGATIVE); LEUKOCYTE ESTERASE,URINE NEGATIVE (NEGATIVE); NITRITE,URINE NEGATIVE (NEGATIVE); OCCULT BLOOD,URINE MODERATE (NEGATIVE); PROTEIN,URINE >=300 (NEGATIVE)
[2022-12-30 18:15] LABS: EPITHELIAL CELLS,URINE FEW /HPF (NOT SEEN); FINE GRANULAR CASTS,URINE FEW /LPF (NOT SEEN); GRANULAR CASTS,URINE RARE; HYALINE CASTS,URINE FEW; MUCUS,URINE FEW /LPF (NOT SEEN); WBC,URINE 0-5 /HPF (0-5/HPF)
[2022-12-30] MEDS: Magnesium Sulfate/Water 2 GM in Premix Bag 1 BAG IV ONE (18:53)
[2022-12-30 20:36] VITALS: BP 147/71; PULSE 81
== END 2022-12-30 21:03 | disposition home or self-care (01) ==
LOC: DL.ED 16:26
DX: C15.9 Malignant neoplasm of esophagus, unspecified (principal); R13.10 Dysphagia, unspecified; E87.6 Hypokalemia; E83.42 Hypomagnesemia; F17.210 Nicotine dependence, cigarettes, uncomplicated; E78.00 Pure hypercholesterolemia, unspecified; E03.9 Hypothyroidism, unspecified; Z86.16 Personal history of COVID-19; Z79.899 Other long term (current) drug therapy; Z88.5 Allergy status to narcotic agent; Z88.6 Allergy status to analgesic agent; Z91.011 Allergy to milk products; Z88.8 Allergy status to other drugs, medicaments and biological substances
CPT/HCPCS: 36415; 80048; 81001; 83735; 84100; 96365; 96366; 96367; 99284-25; 99285; A9270-GY; J1642; J3475; J3480; J7120

== ENCOUNTER 2024-01-18 13:26 | Emergency (ER) | payer MEDICARE, OTHER ==
[2024-01-18 13:59] VITALS: BP 145/85; PULSE 108
[2024-01-18 14:02] LABS: BASOPHILS PERCENT AUTO 0.2 % (0.0-1.0); EOSINOPHILS PERCENT AUTO 1.5 % (1.0-3.0); HEMATOCRIT 37.4 % (37.0-47.0); HEMOGLOBIN 12.1 g/dL (12.0-16.0); LYMPHOCYTES PERCENT AUTO 44.5 % (20.5-50.1); MEAN CORPUSCULAR HEMOGLOBIN 28.5 pg (27.0-34.0); MEAN CORPUSCULAR HGB CONC 32.4 g/dL (33.0-35.0); MONOCYTES PERCENT AUTO 11.1 % (2-8); NEUTROPHILS PERCENT AUTO 42.7 % (42.2-75.2); PLATELET COUNT,PLT 175 10^3/uL (150-450); RED BLOOD CELL COUNT 4.25 10^6/uL (4.2-5.4); WHITE BLOOD CELL COUNT,WBC 5.9 10^3/uL (5.0-10.0)
[2024-01-18 14:22] LABS: ALBUMIN 2.7 g/dL (3.4-5.0); ANION GAP 10.6 mEq/L (7-13); BILIRUBIN TOTAL 0.4 mg/dL (0.2-1.0); BUN/CREATININE RATIO 10.1 (No establ ref range); CALCIUM 8.5 mg/dL (8.5-10.1); CREATININE 0.69 mg/dL (0.55-1.02); EST CRCL DRUG DOSING (CG) 46.71 mL/min; POTASSIUM,K 3.6 mmol/L (3.5-5.1); PROTEIN TOTAL,TP 6.6 g/dL (6.4-8.2)
[2024-01-18 14:23] LABS: A/G RATIO 0.69
[2024-01-18] MEDS: Lactated Ringers 1,000 ML IV SCH (15:27)
== END 2024-01-18 16:36 | disposition home or self-care (01) ==
LOC: DL.ED 13:26
DX: E86.0 Dehydration (principal); E78.00 Pure hypercholesterolemia, unspecified; E03.9 Hypothyroidism, unspecified; Z86.16 Personal history of COVID-19; Z87.891 Personal history of nicotine dependence; Z79.899 Other long term (current) drug therapy; Z79.890 Hormone replacement therapy; Z88.6 Allergy status to analgesic agent; Z88.1 Allergy status to other antibiotic agents; Z91.011 Allergy to milk products; Z88.8 Allergy status to other drugs, medicaments and biological substances
CPT/HCPCS: 36415; 80053; 85025; 86850; 86900; 86901; 96360; 99283; 99284-25; J1642; J7120

== ENCOUNTER 2024-04-14 18:16 | Emergency (ER) | payer MEDICARE, OTHER ==
[2024-04-14 19:28] LABS: BASOPHILS PERCENT AUTO 0.4 % (0.0-1.0); EOSINOPHILS PERCENT AUTO 3.1 % (1.0-3.0); HEMATOCRIT 39.1 % (37.0-47.0); HEMOGLOBIN 12.6 g/dL (12.0-16.0); LYMPHOCYTES PERCENT AUTO 20.9 % (20.5-50.1); MEAN CORPUSCULAR HGB CONC 32.2 g/dL (33.0-35.0); MEAN CORPUSCULAR VOLUME 83.9 fL (80-100); MONOCYTES PERCENT AUTO 11.2 % (2-8); NEUTROPHILS PERCENT AUTO 64.4 % (42.2-75.2); PLATELET COUNT,PLT 337 10^3/uL (150-450); RED BLOOD CELL COUNT 4.66 10^6/uL (4.2-5.4); WHITE BLOOD CELL COUNT,WBC 4.6 10^3/uL (5.0-10.0)
[2024-04-14 20:09] LABS: PROTHROMBIN TIME 10.7 SEC (9.0-12.0)
[2024-04-14] MEDS: hydrALAZINE 20 MG/ML SDV IVPUSH ONE (20:09)
[2024-04-14 20:26] LABS: APPEARANCE,URINE CLEAR (CLEAR); BILIRUBIN,URINE NEGATIVE (NEGATIVE); COLOR,URINE YELLOW (YELLOW); GLUCOSE,URINE NEGATIVE (NEGATIVE); KETONES,URINE NEGATIVE (NEGATIVE); LEUKOCYTE ESTERASE,URINE NEGATIVE (NEGATIVE); NITRITE,URINE NEGATIVE (NEGATIVE); OCCULT BLOOD,URINE NEGATIVE (NEGATIVE); PROTEIN,URINE NEGATIVE (NEGATIVE); UROBILINOGEN,URINE 0.2 mg/dL (0.2-1.0)
[2024-04-14 21:24] LABS: A/G RATIO 0.73; ANION GAP 12.4 mEq/L (7-13); BILIRUBIN TOTAL 0.3 mg/dL (0.2-1.0); BUN/CREATININE RATIO 17.1 (No establ ref range); CALCIUM 8.6 mg/dL (8.5-10.1); CREATININE 0.7 mg/dL (0.55-1.02); EST CRCL DRUG DOSING (CG) 46.04 mL/min; MAGNESIUM 2.2 mg/dL (1.8-2.4); POTASSIUM,K 4.4 mmol/L (3.5-5.1); PROTEIN TOTAL,TP 7.1 g/dL (6.4-8.2)
[2024-04-14] MEDS: Iopamidol 755 Mg/ML 100 ML Bottle IVPUSH ONE (22:01)
[2024-04-15 02:56] VITALS: BP 117/62; PULSE 92
== END 2024-04-15 04:08 ==
LOC: DL.ED 18:16
DX: G45.9 Transient cerebral ischemic attack, unspecified (principal); I16.0 Hypertensive urgency; M25.551 Pain in right hip; E03.9 Hypothyroidism, unspecified; I10 Essential (primary) hypertension; J44.9 Chronic obstructive pulmonary disease, unspecified; K21.9 Gastro-esophageal reflux disease without esophagitis; E78.00 Pure hypercholesterolemia, unspecified; Z86.16 Personal history of COVID-19; Z87.891 Personal history of nicotine dependence; Z79.899 Other long term (current) drug therapy; Z88.5 Allergy status to narcotic agent; Z88.8 Allergy status to other drugs, medicaments and biological substances; Z91.011 Allergy to milk products
CPT/HCPCS: 36415; 70450; 70496; 70498; 72192; 80053; 81003; 82947; 83605; 83735; 84484; 85025; 85610; 96374; 99285; J0360; Q9967

== ENCOUNTER 2024-08-16 11:48 | Emergency (ER) | payer MEDICARE, OTHER ==
[2024-08-16 12:27] LABS: EOSINOPHILS PERCENT AUTO 3.6 % (1.0-3.0); HEMATOCRIT 35.6 % (37.0-47.0); HEMOGLOBIN 11.2 g/dL (12.0-16.0); LYMPHOCYTES PERCENT AUTO 12.5 % (20.5-50.1); MEAN CORPUSCULAR HEMOGLOBIN 26.8 pg (27.0-34.0); MEAN CORPUSCULAR HGB CONC 31.5 g/dL (33.0-35.0); MEAN CORPUSCULAR VOLUME 85.2 fL (80-100); MONOCYTES PERCENT AUTO 4.7 % (2-8); NEUTROPHILS PERCENT AUTO 79.2 % (42.2-75.2); PLATELET COUNT,PLT 330 10^3/uL (150-450); RED BLOOD CELL COUNT 4.18 10^6/uL (4.2-5.4); WHITE BLOOD CELL COUNT,WBC 4.5 10^3/uL (5.0-10.0)
[2024-08-16 12:51] LABS: ALBUMIN 2.9 g/dL (3.4-5.0); ANION GAP 10.5 mEq/L (7-13); BILIRUBIN TOTAL 0.3 mg/dL (0.2-1.0); BUN/CREATININE RATIO 13.6 (No establ ref range); CALCIUM 8.9 mg/dL (8.5-10.1); CREATININE 0.81 mg/dL (0.55-1.02); EST CRCL DRUG DOSING (CG) 39.79 mL/min; MAGNESIUM 1.9 mg/dL (1.8-2.4); POTASSIUM,K 3.5 mmol/L (3.5-5.1); PROTEIN TOTAL,TP 6.7 g/dL (6.4-8.2)
[2024-08-16 12:53] LABS: A/G RATIO 0.76
[2024-08-16 13:00] VITALS: BP 123/63; PULSE 92
== END 2024-08-16 13:19 | disposition home or self-care (01) ==
LOC: DL.ED 11:48
DX: C15.9 Malignant neoplasm of esophagus, unspecified (principal); C16.9 Malignant neoplasm of stomach, unspecified; J90 Pleural effusion, not elsewhere classified; E78.00 Pure hypercholesterolemia, unspecified; E03.9 Hypothyroidism, unspecified; Z88.8 Allergy status to other drugs, medicaments and biological substances; Z88.5 Allergy status to narcotic agent; Z91.011 Allergy to milk products; Z79.890 Hormone replacement therapy; Z79.899 Other long term (current) drug therapy; Z86.16 Personal history of COVID-19; Z92.21 Personal history of antineoplastic chemotherapy
CPT/HCPCS: 36415; 71045; 80053; 83735; 85025; 87428-QW; 99285

== ENCOUNTER 2024-12-13 20:27 | Emergency (ER) | payer MEDICARE, OTHER ==
[2024-12-13 21:28] LABS: BASOPHILS PERCENT AUTO 0.2 % (0.0-1.0); EOSINOPHILS PERCENT AUTO 0.0 % (1.0-3.0); LYMPHOCYTES PERCENT AUTO 8.5 % (20.5-50.1); MONOCYTES PERCENT AUTO 15.5 % (2-8); NEUTROPHILS PERCENT AUTO 75.8 % (42.2-75.2); PLATELET COUNT,PLT 332 10^3/uL (150-450); RED BLOOD CELL COUNT 3.92 10^6/uL (4.2-5.4); WHITE BLOOD CELL COUNT,WBC 4.6 10^3/uL (5.0-10.0)
[2024-12-13 21:53] LABS: A/G RATIO 0.78; ALANINE AMINOTRANSFERASE,ALT 17.0 U/L (14-59); ASPARTATE AMNIOTRANSFERASE,AST 21.0 U/L (15-37); BILIRUBIN TOTAL 0.2 mg/dL (0.2-1.0); BLOOD UREA NITROGEN,BUN 12.0 mg/dL (7-18); CARBON DIOXIDE,CO2 28.0 mmol/L (21-32); CHLORIDE,CL 105.0 mmol/L (98-107); CREATININE 0.68 mg/dL (0.55-1.02); EST CRCL DRUG DOSING (CG) 37.63 mL/min; ESTIMATED GFR 87.0 mL/min (>=60); GLUCOSE RANDOM 122.0 mg/dL (70-99); LACTIC ACID 1.1 mmol/L (0.4-2.0); POTASSIUM,K 3.4 mmol/L (3.5-5.1); PROTEIN TOTAL,TP 6.6 g/dL (6.4-8.2); SODIUM,NA 142.0 mmol/L (136-145)
[2024-12-13 22:56] LABS: APPEARANCE,URINE CLEAR (CLEAR); GLUCOSE,URINE NEGATIVE (NEGATIVE); OCCULT BLOOD,URINE NEGATIVE (NEGATIVE)
[2024-12-13 23:10] VITALS: BP 156/77; PULSE 97
== END 2024-12-13 23:52 | disposition home or self-care (01) ==
LOC: DL.ED 20:27
DX: E86.0 Dehydration (principal); C15.9 Malignant neoplasm of esophagus, unspecified; E78.00 Pure hypercholesterolemia, unspecified; E03.9 Hypothyroidism, unspecified; Z88.6 Allergy status to analgesic agent; Z88.8 Allergy status to other drugs, medicaments and biological substances; Z91.011 Allergy to milk products; Z88.5 Allergy status to narcotic agent; Z79.899 Other long term (current) drug therapy; Z79.890 Hormone replacement therapy; Z86.16 Personal history of COVID-19
CPT/HCPCS: 36415; 71045; 80053; 81003; 83605; 83690; 83735; 84145; 84484; 85025; 87040; 93005; 93010; 96360; 96361; 99285; 99285-25; J7030